=== PATIENT | male | born 1985 | race American Indian/Alaskan Native ===

== ENCOUNTER 2016-12-02 16:37 | Inpatient (IN) | payer OTHER ==
[2016-12-02] MEDS ORDERED: Sodium Chloride 0.9% 1,000 ML IV STA (16:51)
[2016-12-02] MEDS ORDERED: Albuterol 0.083% Inhal Sol (2.5 mg/3 mL) UD IH STA (16:51)
[2016-12-02 16:54] VITALS: BMI 40.4
--- NOTE | 2016-12-02 17:28 | ED PDOC ---
Arrival/HPI - General Chief Complaint: Flu-like Symptoms Time Seen by Provider: 12/02/16 16:44 Historian: Patient - History of Present Illness Narrative History of Present Illness (Text): 12/02/16 17:24 31-year-old male presents today with a three-day history of cough and a one day history of headache fever and feeling dizzy. Patient complaining of productive cough x 3 days. pt with hx of asthma. c/o wheezing and cough. pt states today he developed fever and headache. took nyquil without improvement. pt with sick contacts at home. denies chest pain or shortness of breath. pt c/o sore throat and nasal congestion. pt describes the headache as throbbing around the whole head. denies blurred vision. Pt states today he started to feel dizzy when he stands up. pt states he did get his flu shot this year. no other complaints. Past Medical History - Provider Review Nursing Documentation Reviewed: Yes - Travel History Have you recently traveled outside [place] w/in the past 3 mons?: No - Infectious Disease Hx of Infectious Diseases: None - Cardiac Hx Cardiac Disorders: No - Pulmonary Hx Respiratory Disorders: Yes Hx Asthma: Yes - Neurological Hx Neurological Disorder: No - HEENT Hx HEENT Disorder: No - Renal Hx Renal Disorder: No - Endocrine/Metabolic Hx Endocrine Disorders: No - Hematological/Oncological Hx Blood Disorders: No - Integumentary Hx Dermatological Disorder: No - Musculoskeletal/Rheumatological Hx Musculoskeletal Disorders: No - Gastrointestinal Hx Gastrointestinal Disorders: No - Genitourinary/Gynecological Hx Genitourinary Disorders: No - Psychiatric Hx Psychophysiologic Disorder: No Hx Substance Use: No - Anesthesia Hx Anesthesia: No Hx Anesthesia Reactions: No Hx Malignant Hyperthermia: No Family/Social History - Physician Review Nursing Documentation Reviewed: Yes Family/Social History: Unknown Family HX Smoking Status: Light Smoker < 10 Cigarettes Daily Hx Alcohol Use: Yes Frequency of alcohol use: Socially Hx Substance Use: No Allergies/Home Meds Allergies/Adverse Reactions: Allergies shellfish derived Allergy (Verified 12/02/16 16:44) ANAPHYLAXIS Home Medications: Home Meds Medication Instructions Recorded Confirmed No Known Home Med 12/02/16 12/02/16 Review of Systems - Review of Systems Constitutional: Fatigue, Fevers ENT: Sore Throat, Sinus Congestion Respiratory: Cough, Wheezing. absent: SOB Cardiovascular: absent: Chest Pain Gastrointestinal: absent: Abdominal Pain, Nausea, Vomiting Genitourinary Male: absent: Dysuria, Frequency Musculoskeletal: absent: Back Pain, Neck Pain Skin: absent: Rash, Pruritis Neurological: Headache, Dizziness Psychiatric: absent: Anxiety, Depression Physical Exam Vital Signs Reviewed: Yes Vital Signs Temp Pulse Resp BP Pulse Ox 12/02/16 18:40 99.1 F 113 H 18 138/78 95 12/02/16 17:08 100.8 F H 12/02/16 16:44 100.8 F H 97 H 18 134/84 95 Temperature: Febrile Blood Pressure: Normal Pulse: Tachycardic Respiratory Rate: Normal Appearance: Positive for: Well-Appearing, Non-Toxic, Comfortable Pain Distress: None Mental Status: Positive for: Alert and Oriented X 3 - Systems Exam Head: Present: Atraumatic Conjunctiva: Present: Normal Ears: Present: Normal, NORMAL TM Mouth: Present: Moist Mucous Membranes Pharnyx: Present: Normal. No: ERYTHEMA, EXUDATE, TONSILS ENLARGED, Peritonsilar Swelling, Uvular Deviation, Muffled/Hoarse Voice, Strider Nose (External): Present: Atraumatic Nose (Internal): Present: Normal Inspection Neck: Present: Normal Range of Motion, Trachea Midline. No: Lymphadenopathy Respiratory/Chest: Present: Good Air Exchange, Wheezes, Decreased Breath Sounds , Rhonchi. No: Clear to Auscultation, Respiratory Distress, Accessory Muscle Use, Tachypneic, Tender to Palpation Cardiovascular: Present: Regular Rate and Rhythm, Normal S1, S2. No: Murmurs Abdomen: Present: Normal Bowel Sounds. No: Tenderness, Distention, Peritoneal Signs, Rebound, Guarding Back: Present: Normal Inspection Neurological: Present: GCS=15, Speech Normal Skin: Present: Warm, Dry, Normal Color. No: Rashes Psychiatric: Present: Alert, Oriented x 3 Medical Decision Making ED Course and Treatment: 12/02/16 17:35 Patient is nontoxic well-appearing in no distress. low grade fever. hypoxia, diffuse wheezing, rhonchi tylenol and motrin given po NS iv bolus given rapid flu negative rapid strep: negative cxr; + rll infiltrate cbc; wbc:16.2 blood cultures pending Zithromax and rocephin iv heart rate improving; still occasionally hypoxic with slight wheezing despite nebulizers. tachycardia most likely due to fever and albuterol treatments. pt reassessment; feeling a little better, still c/o dizziness and cough. case discussed with dr. heller; will admit to med surg for pneumonia, with hx of asthma and smoking, with wheezing and hypoxia. pt seen and evaluated by dr. chandra. IMPRESSION; pneumonia admit to med/surg - Lab Interpretations Lab Results: 12/02/16 18:35 12/02/16 18:35 Lab Results 12/02/16 18:35: WBC 16.2 H, RBC 5.19, Hgb 14.6, Hct 42.4, MCV 81.7, MCH 28.1, MCHC 34.4, RDW 12.9, Plt Count 190, MPV 9.9, Gran % 79.8 H, Lymph % (Auto) 9.3 L , [place] % (Auto) 10.6 H, Eos % (Auto) 0.1 L, Baso % (Auto) 0.2, Gran # 12.91 H, Lymph # 1.5, [place] # 1.7 H, Eos # 0.0, Baso # 0.03, Sodium 135, Potassium 3.8, Chloride 102, Carbon Dioxide 22, Anion Gap 15, BUN 14, Creatinine 1.1, Est GFR ( Amer) > 60, Est GFR (Non-Af Amer) > 60, Random Glucose 122 H, Calcium 8.7, Total Bilirubin 0.8, AST 38, ALT 45, Alkaline Phosphatase 46, Total Protein 7.7, Albumin 4.1, Globulin 3.6, Albumin/Globulin Ratio 1.1 12/02/16 17:15: Influenza Typ A,B (EIA) Negative for flu a/b, Grp A Beta Strep Ag Negative - RAD Interpretation Radiology Orders: 12/02/16 16:52 CHEST TWO VIEWS (PA/LAT) [RAD] Stat - Medication Orders Current Medication Orders: Azithromycin (Zithromax 500mg In Ns) 250 mls @ 167 mls/hr IVPB STAT STA PRN Reason: Protocol Stop: 12/02/16 21:33 Discontinued Medications Acetaminophen (Tylenol 325mg Tab) 975 mg PO STAT STA Stop: 12/02/16 16:53 Last Admin: 12/02/16 17:08 Dose: 975 MG MAR Pain/Vitals Document 12/02/16 17:08 SE (Rec: 12/02/16 17:08 SE [id number]) Pain Reassessment Is This A Pain ReAssessment? No Sleep Is patient sleeping during reassessment? No Presence of Pain Presence of Pain No Vitals Temperature (97.6 F-99.6 F) 100.8 F Temperature Source Oral Albuterol Sulfate (Albuterol 0.083% Inhal [place] (2.5 Mg/3 Ml) Ud) 2.5 mg IH STAT STA Stop: 12/02/16 16:52 Last Admin: 12/02/16 17:05 Dose: 2.5 MG Albuterol/Ipratropium (Duoneb 3 Mg/0.5 Mg (3 Ml) Ud) 3 ml IH STAT STA Stop: 12/02/16 18:46 Last Admin: 12/02/16 18:54 Dose: 3 ML Albuterol/Ipratropium (Duoneb 3 Mg/0.5 Mg (3 Ml) Ud) 3 ml IH STAT STA Stop: 12/02/16 18:47 Last Admin: 12/02/16 18:54 Dose: 3 ML Sodium Chloride (Sodium Chloride 0.9%) 1,000 mls @ 999 mls/hr IV .Q1H1M STA Stop: 12/02/16 17:51 Last Admin: 12/02/16 17:05 Dose: 999 MLS/HR eMAR Start Stop Document 12/02/16 17:05 SE (Rec: 12/02/16 17:05 [id number]) Intravenous Solution Start Date 12/02/16 Start Time 17:05 Ceftriaxone Sodium (Rocephin 1 Gram Ivpb) 100 mls @ 200 mls/hr IVPB STAT STA PRN Reason: Protocol Stop: 12/02/16 20:33 Last Admin: 12/02/16 20:38 Dose: 200 MLS/HR eMAR Start Stop Document 12/02/16 20:38 SE (Rec: 12/02/16 20:38 [id number] Intravenous Solution Start Date 12/02/16 Start Time 20:38 Ibuprofen (Motrin Tab) 600 mg PO STAT STA Stop: 12/02/16 16:53 Last Admin: 12/02/16 17:08 Dose: 600 MG MAR Pain/Vitals Document 12/02/16 17:08 SE (Rec: 12/02/16 17:08 SE [id number]) Pain Reassessment Is This A Pain ReAssessment? No Sleep Is patient sleeping during reassessment? No Presence of Pain Presence of Pain Yes Vitals Temperature (97.6 F-99.6 F) 100.8 F Temperature Source Oral Disposition/Present on Arrival - Present on Arrival Any Indicators Present on Arrival: No History of DVT/PE: No History of Uncontrolled Diabetes: No Urinary Catheter: No History of Decub. Ulcer: No History Surgical Site Infection Following: None - Disposition Have Diagnosis and Disposition been Completed?: Yes Diagnosis: Pneumonia, Hypoxia, Fever, Leukocytosis Disposition: HOSPITALIZED Disposition Time: 21:00 Patient Plan: Admission Patient Problems: Current Active Problems Problem Status Diagnosed Pneumonia Acute Condition: FAIR
[2016-12-02] MEDS ORDERED: Albuterol-Ipratrop 3 mg / 0.5 (3 ml) UD IH STA ×2 (18:45→18:46)
[2016-12-02 18:46] LABS: ADD MANUAL DIFF? NO
[2016-12-02 18:49] LABS: BASO # 0.03 K/mm3 (0.0-2.0); BASO % 0.2 % (0.0-3.0); EOS % 0.1 % (1.5-5.0); GRAN # 12.91 (1.4-6.5); GRAN % 79.8 % (50.0-68.0); HEMATOCRIT 42.4 % (42.0-52.0); LYMPH # 1.5 (1.2-3.4); LYMPH % 9.3 % (22.0-35.0); MEAN CELL VOLUME 81.7 fL (80.0-105.0); MEAN CORPUSCULAR HEMOGLOBIN 28.1 pg (25.0-35.0); MEAN CORPUSCULAR HGB CONC 34.4 g/dl (31.0-37.0); MEAN PLATELET VOLUME 9.9 fl (7.0-11.0); MONO # 1.7 (0.1-0.6); MONO % 10.6 % (1.0-6.0); PLATELET COUNT 190 10^3/uL (120.0-450.0); RED CELL DISTRIBUTION WIDTH 12.9 % (11.5-14.5); WHITE BLOOD COUNT 16.2 10^3/ul (4.5-11.0)
[2016-12-02 19:04] LABS: ALB/GLOB RATIO 1.1 (1.1-1.8); ALKALINE PHOSPHATASE 46 U/L (38-133); ALT/SGPT 45 U/L (7-56); AST/SGOT 38 U/L (15-59); BILIRUBIN,TOTAL 0.8 mg/dL (0.2-1.3); BLOOD UREA NITROGEN 14 mg/dL (7-21); CALCIUM 8.7 mg/dL (8.4-10.5); CARBON DIOXIDE 22 mmol/L (21-33); CHLORIDE 102 mmol/L (98-107); GFR AFRICAN-AMERICAN > 60; GLUCOSE,RANDOM 122 mg/dL (70-110); POTASSIUM 3.8 mmol/L (3.6-5.0); SODIUM 135 mmol/L (132-148); TOTAL PROTEIN 7.7 g/dL (5.8-8.3)
[2016-12-02] MEDS ORDERED: cefTRIAXone 1 gm 100 ML IVPB STA (20:04)
[2016-12-02] MEDS ORDERED: Azithromycin 500MG/NS 250ml 250 ML IVPB STA (20:04)
[2016-12-02] MEDS ORDERED: Albuterol-Ipratrop 3 mg / 0.5 (3 ml) UD IH PRN (21:55)
--- NOTE | 2016-12-02 22:24 | HP ---
HISTORY OF PRESENT ILLNESS: The patient is a 31-year-old who has been feeling sick for the last 2 da ys, complaining of cough, congestion, wheezing, runny stuffy nose, headache, dizziness. He stated hi s other family members are sick also. Denies current complaint of feeling dizzy and lightheaded. De nies any hemoptysis, no hematemesis. Does feel nauseous. PAST MEDICAL HISTORY: Significant for asthma. ALLERGIES: HE IS ALLERGIC TO SHELLFISH DERIVATIVE. MEDICATIONS AT HOME: He uses an inhaler as needed. REVIEW OF SYSTEMS: Significant for cough, congestion, headache, dizziness. PHYSICAL EXAMINATION: GENERAL: He is awake and alert and communicative. VITAL SIGNS: He has temperature of 100.8, pulse 97, respirations 18, blood pressure 134/84, pulse ox 95% on 2 liters nasal cannula. HEART: S1, S2 audible. Tachycardic. ABDOMEN: Soft, nontender, no rebound, no guarding. NEUROLOGIC: He is awake and alert, communicative. LABORATORY EXAMINATION: WBC 16.2, hemoglobin 14.6, hematocrit 42.4, platelets 190. Chemistry: [place] um 135, potassium 3.8, chloride 102, CO2 of 22, BUN 14, creatinine 1.1, blood sugar 122. LFTs are wi thin normal limits. Influenza and strep test are negative. Blood culture, urine cultures are pendin g. X-ray chest shows right lower lobe pneumonia. ASSESSMENT: 1. Community-acquired pneumonia. 2. Asthmatic bronchitis. 3. Bronchospasm. 4. Hypoxia. 5. Leukocytosis. PLAN: The patient's blood culture, urine cultures are sent. He is empirically started on Zithromax and Rocephin. We will continue nebulizer treatment, small dose of steroid, analgesic as needed. Out of bed to chair. ID consult with Dr. Sharma has been requested. Nuvia Barriga MD cc: [phone] TT: 12/02/2016 22:24:11 sn
[2016-12-03] MEDS: MethylPREDNISolone 40 mg Vial IV SCH ×3 (00:35→21:19)
[2016-12-03] MEDS: Albuterol-Ipratrop 3 mg / 0.5 (3 ml) UD IH SCH ×4 (01:45→20:02)
[2016-12-03] MEDS: Pantoprazole 40 mg EC Tab PO SCH (08:07)
--- NOTE | 2016-12-03 08:26 | RAD ---
HISTORY: cough/fever COMPARISON: No prior. TECHNIQUE: Chest PA and lateral FINDINGS: LUNGS: Right middle lobe infiltrate. Possible pneumonia. PLEURA: No significant pleural effusion identified. No pneumothorax apparent. CARDIOVASCULAR: Normal. OSSEOUS STRUCTURES: No significant abnormalities. VISUALIZED UPPER ABDOMEN: Normal. OTHER FINDINGS: None. IMPRESSION: Right middle lobe infiltrate.
[2016-12-03] MEDS: Azithromycin 500MG/NS 250ml 250 ML IVPB SCH (10:07)
[2016-12-03] MEDS: cefTRIAXone 1 gm 100 ML IVPB SCH (11:02)
--- NOTE | 2016-12-03 13:00 | PN ---
DATE: 12/03/2016 The patient is a 31-year-old, seen and examined, sitting in chair, eating comfortably. No headache, no dizziness. PHYSICAL EXAMINATION: VITAL SIGNS: He is afebrile, pulse 74, respirations 20, blood pressure 123/65. LUNGS: Bilateral soft crackle, moreso on the right lower lung. HEART: S1, S2 audible. ABDOMEN: Soft, obese, nontender, no rebound, no guarding. NEUROLOGIC: He is awake and alert, communicative, ambulatory. His influenza test and strep test is negative. ASSESSMENT: 1. Community-acquired pneumonia. 2. Asthmatic bronchitis. 3. Leukocytosis. 4. Hypoxia. PLAN: We will continue patient on current antibiotic. Follow up his CBC and CMP in a.m. Encourage ambulation. If he remains stable, discharge plan soon. Nuvia Barriga MD cc: [phone] TT: 12/03/2016 12:59:56 Confirmation # [id number] Dictation # [id number]
--- NOTE | 2016-12-03 22:36 | CP.PCM.CON ---
History of Present Illness - History of Present Illness History of Present Illness: 31 year old male with PMH of morbid obesity with BMI 40, asthma, active smoking came in to the ED complaining of malaise, cough and fever for about 3 days associated with some dizziness. He also had non-specific headache. He states that he was exposed to sick family members the past week. He started having sore throat and nasal congestion about 4-5 days ago but did not recover and continued to worsen. He denies chest pain, no nausea or vomiting, no abdominal pain, no dysuria, no hematuria, no diarrhea. In the ED, CXR showed right middle lobe infiltrate and Infectious Diseases consult is requested to further evaluate and manage. Review of Systems - Review of Systems All systems: reviewed and no additional remarkable complaints except (as per HPI ) Past Patient History - Infectious Disease Hx of Infectious Diseases: None - Past Social History Smoking Status: Light Smoker < 10 Cigarettes Daily - CARDIAC Hx Cardiac Disorders: No - PULMONARY Hx Respiratory Disorders: Yes Hx Asthma: Yes - NEUROLOGICAL Hx Neurological Disorder: No - HEENT Hx HEENT Problems: No - RENAL Hx Chronic Kidney Disease: No - ENDOCRINE/METABOLIC Hx Endocrine Disorders: No - HEMATOLOGICAL/ONCOLOGICAL Hx Blood Disorders: No - INTEGUMENTARY Hx Dermatological Problems: No - MUSCULOSKELETAL/RHEUMATOLOGICAL Hx Musculoskeletal Disorders: No - GASTROINTESTINAL Hx Gastrointestinal Disorders: No - GENITOURINARY/GYNECOLOGICAL Hx Genitourinary Disorders: No - PSYCHIATRIC Hx Psychophysiologic Disorder: No Hx Substance Use: No - SURGICAL HISTORY Hx Surgeries: No - ANESTHESIA Hx Anesthesia: No Hx Anesthesia Reactions: No Hx Malignant Hyperthermia: No Meds Allergies/Adverse Reactions: Allergies Allergy/AdvReac Type Severity Reaction Status Date / Time shellfish derived Allergy ANAPHYLAXIS Verified 12/02/16 16:44 - Medications Medications: Current Medications Acetaminophen (Tylenol 325mg Tab) 650 mg PO Q6H PRN PRN Reason: Fever >100.4 F Albuterol/Ipratropium (Duoneb 3 Mg/0.5 Mg (3 Ml) Ud) 3 ml IH Q2H PRN PRN Reason: Shortness of Breath Last Admin: 12/03/16 00:24 Dose: 3 ml Albuterol/Ipratropium (Duoneb 3 Mg/0.5 Mg (3 Ml) Ud) 3 ml IH [id number] Last Admin: 12/03/16 01:45 Dose: Not Given Azithromycin (Zithromax 500mg In Ns) 250 mls @ 167 mls/hr IVPB DAILY [facility] PRN Reason: Protocol Ceftriaxone Sodium (Rocephin 1 Gram Ivpb) 100 mls @ 100 mls/hr IVPB DAILY [facility] PRN Reason: Protocol Methylprednisolone (Solu-Medrol) 40 mg IV Q12 [facility] Last Admin: 12/03/16 00:35 Dose: 40 mg Pantoprazole Sodium (Protonix Ec Tab) 40 mg PO ACB [facility] Physical Exam - Constitutional Appears: Non-toxic, No Acute Distress - Head Exam Head Exam: NORMAL INSPECTION - ENT Exam ENT Exam: Mucous Membranes Moist - Neck Exam Neck exam: Negative for: Meningismus - Respiratory Exam Respiratory Exam: Decreased Breath Sounds, Rales (scattered) - Cardiovascular Exam Cardiovascular Exam: +S1, +S2 - GI/Abdominal Exam GI & Abdominal Exam: Soft. absent: Tenderness Results - Vital Signs Recent Vital Signs: Last Vital Signs Temp 97.9 F 12/02/16 23:48 Pulse 87 12/03/16 00:25 Resp 18 12/02/16 23:48 BP 147/82 12/03/16 01:12 Pulse Ox 100 12/02/16 21:45 - Labs Result Diagrams: 12/02/16 18:35 12/02/16 18:35 Assessment & Plan - Assessment and Plan (Free Text) Plan: Assessment Sepsis secondary to right middle lobe community-acquired pneumonia morbid obesity with BMI 40 asthma active smoking Plan Started patient on Rocephin and Zithromax pending blood and sputum cx; follow up PCT Will monitor clinical response
[2016-12-04] MEDS: Albuterol-Ipratrop 3 mg / 0.5 (3 ml) UD IH SCH ×3 (01:52→13:12)
[2016-12-04 08:06] LABS: ADD MANUAL DIFF? NO
[2016-12-04 08:09] LABS: BASO # 0.02 K/mm3 (0.0-2.0); BASO % 0.1 % (0.0-3.0); GRAN # 17.72 (1.4-6.5); GRAN % 85.4 % (50.0-68.0); HEMATOCRIT 37.2 % (42.0-52.0); LYMPH # 1.6 (1.2-3.4); LYMPH % 7.7 % (22.0-35.0); MEAN CELL VOLUME 80.3 fL (80.0-105.0); MEAN CORPUSCULAR HEMOGLOBIN 27.6 pg (25.0-35.0); MEAN CORPUSCULAR HGB CONC 34.4 g/dl (31.0-37.0); MEAN PLATELET VOLUME 10.4 fl (7.0-11.0); MONO # 1.4 (0.1-0.6); MONO % 6.8 % (1.0-6.0); PLATELET COUNT 252 10^3/uL (120.0-450.0); RED CELL DISTRIBUTION WIDTH 12.9 % (11.5-14.5); WHITE BLOOD COUNT 20.8 10^3/ul (4.5-11.0)
[2016-12-04 08:25] LABS: ALB/GLOB RATIO 1.1 (1.1-1.8); ALKALINE PHOSPHATASE 58 U/L (38-133); ALT/SGPT 38 U/L (7-56); AST/SGOT 25 U/L (15-59); BILIRUBIN,TOTAL 0.4 mg/dL (0.2-1.3); BLOOD UREA NITROGEN 14 mg/dL (7-21); CALCIUM 9.1 mg/dL (8.4-10.5); CARBON DIOXIDE 24 mmol/L (21-33); CHLORIDE 103 mmol/L (95-110); GFR AFRICAN-AMERICAN > 60; GLUCOSE,RANDOM 163 mg/dL (70-110); POTASSIUM 4.4 mmol/L (3.6-5.0); SODIUM 140 mmol/L (132-148); TOTAL PROTEIN 7.2 g/dL (5.8-8.3)
[2016-12-04 08:50] VITALS: BP 109/40; PULSE 52; RESP 16; TEMP 97.9; O2SAT 100
[2016-12-04] MEDS: cefTRIAXone 1 gm 100 ML IVPB SCH (09:52)
[2016-12-04] MEDS: MethylPREDNISolone 40 mg Vial IV SCH (09:52)
[2016-12-04] MEDS: Pantoprazole 40 mg EC Tab PO SCH (09:53)
[2016-12-04] MEDS: Azithromycin 500MG/NS 250ml 250 ML IVPB SCH (10:54)
[2016-12-04] MEDS ORDERED: Pneumococcal 23-Valent Vaccine IM ONE (14:29)
--- NOTE | 2016-12-04 19:11 | DS ---
The patient is a 31-year-old black male seen and examined, doing well. He was admitted with high-gra de fever, cough, congestion, dizziness going on for 2 weeks. He was found to have right lower lobe p neumonia. States he is doing well, eating and tolerating. PHYSICAL EXAMINATION: VITAL SIGNS: He is afebrile, pulse 72, respirations 20, blood pressure 122/78. LUNGS: Bilateral fair airflow. Few soft crackles at the right lung base. HEART: S1, S2 audible. ABDOMEN: Soft, nontender, no rebound, no guarding. NEUROLOGIC: The patient is awake and alert, communicative. LABORATORY EXAM: WBC is 20.8, hemoglobin 12.8, hematocrit 37.2, platelets 252. Chemistry: Sodium 1 40, potassium 4.4, chloride 103, CO2 of 24, BUN 14, creatinine 0.9, blood sugar of 163, procalcitonin 2.59. Influenza is negative. Legionella is negative. Blood culture and urine culture are negative . ASSESSMENT AND PLAN: 1. Community-acquired pneumonia. 2. History of asthma. 3. Hypotension. 4. Morbid obesity. 5. Active smoking. PLAN: The patient's blood culture and urine cultures are negative. He is clinically stable. He is not feeling dizziness or headache, so he will be discharged home on Zithromax and Ceftin. He is give n ProAir 2 puffs q.i.d. and promethazine DM 1 teaspoon q. 6. The patient is advised to follow up in office in a week and followup the patient as outpatient. Nuvia Barriga MD cc: [phone] TT: 12/04/2016 19:10:43 mt
--- NOTE | 2016-12-04 21:20 | CP.PCM.PN ---
Subjective - Date & Time of Evaluation Date of Evaluation: 12/04/16 Time of Evaluation: 12:00 - Subjective Subjective: Comfortable in bed, not in distress, afebrile, still with cough but improving. Objective - Vital Signs/Intake and Output Vital Signs (last 24 hours): Temp Pulse Resp BP Pulse Ox 97.9 F 52 L 16 109/40 L 100 12/04/16 08:00 12/04/16 08:00 12/04/16 08:00 12/04/16 08:00 12/04/16 08:00 Intake and Output: 12/04/16 12/05/16 18:59 06:59 Intake Total 1080 Balance 1080 - Labs Labs: 12/04/16 07:36 12/04/16 07:36 - Constitutional Appears: Non-toxic, No Acute Distress - Head Exam Head Exam: NORMAL INSPECTION - ENT Exam ENT Exam: Mucous Membranes Moist - Neck Exam Neck Exam: absent: Lymphadenopathy, Meningismus - Respiratory Exam Respiratory Exam: Decreased Breath Sounds - Cardiovascular Exam Cardiovascular Exam: +S1, +S2 - GI/Abdominal Exam GI & Abdominal Exam: Soft. absent: Tenderness Assessment and Plan - Assessment and Plan (Free Text) Plan: Assessment Sepsis secondary to right middle lobe community-acquired pneumonia, clinically improving morbid obesity with BMI 40 asthma active smoking Plan continue Rocephin and Zithromax; blood cx are negative; PCT is elevated at 2.59 ; when ready for discharge, the patient can be switched to PO antibiotics to complete a 5-7 day course
== END 2016-12-04 17:34 | disposition home or self-care (01) | DRG 194 ==
LOC: ED 16:37 → ERH 21:09 → 5RSO 23:38
PROVIDERS: ADMIT Internal Medicine; ATTEND Internal Medicine
PROC: 3E0234Z Introduction of Serum, Toxoid and Vaccine into Muscle, Percutaneous Approach (ICD-10-PCS; principal; 2016-12-04)
DX: J18.9 Pneumonia, unspecified organism (principal); Z68.41 Body mass index [BMI] 40.0-44.9, adult; I95.9 Hypotension, unspecified; J45.909 Unspecified asthma, uncomplicated; E66.01 Morbid (severe) obesity due to excess calories; F17.200 Nicotine dependence, unspecified, uncomplicated; R09.02 Hypoxemia; Z23 Encounter for immunization

== ENCOUNTER 2017-02-24 01:52 | Inpatient (IN) | payer OTHER ==
[2017-02-24 02:26] VITALS: BMI 39.0
[2017-02-24] MEDS ORDERED: Morphine 2 mg/ml ISec IVP STA (03:00)
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
[2017-02-24] MEDS ORDERED: Propofol 10 mg/ml Inj (20 ML) IVP ONE (05:51)
[2017-02-24] MEDS: Sodium Chloride 0.9% 1,000 ML IV SCH ×2 (06:04→16:31)
[2017-02-24 08:39] LABS: HEMOGLOBIN 13.7 gm/dL (14.0-18.0); MEAN CELL VOLUME 83.7 fL (80.0-105.0); MEAN CORPUSCULAR HEMOGLOBIN 28.2 pg (25.0-35.0); MEAN CORPUSCULAR HGB CONC 33.7 g/dl (31.0-37.0); RBC 4.86 10^6/uL (3.5-6.1); RED CELL DISTRIBUTION WIDTH 13.5 % (11.5-14.5); WHITE BLOOD COUNT 12.2 10^3/ul (4.5-11.0)
[2017-02-24 08:51] LABS: INR 0.99 (0.93-1.08); PARTIAL THROMBOPLASTIN TIME 23.7 Seconds (23.7-30.8); PROTHROMBIN TIME 10.7 Seconds (9.9-11.8)
[2017-02-24 08:53] LABS: ALB/GLOB RATIO 1.4 (1.1-1.8); ALBUMIN 3.9 g/dL (3.0-4.8); ALT/SGPT 55 U/L (7-56); AST/SGOT 42 U/L (15-59); BLOOD UREA NITROGEN 14 mg/dL (7-21); CALCIUM 8.6 mg/dL (8.4-10.5); GFR AFRICAN-AMERICAN > 60; GFR NON-AFRICAN AMERICAN > 60
--- NOTE | 2017-02-24 09:46 | RAD ---
PROCEDURE: Right Ankle Radiographs. HISTORY: ankle injury, dislocated, fracture COMPARISON: None FINDINGS: BONES: Comminuted fracture of the distal shaft of the right fibula with anterior displacement of the distal aspect of the proximal fracture fragment with respect to the distal fibular fragment. . There is anterior dislocation of the distal right tibia with respect to the talus. Surrounding soft tissue swelling. JOINTS: As above SOFT TISSUES: As above OTHER FINDINGS: None. Comminuted fracture of the distal shaft right fibula with anterior displacement of the distal aspect of the proximal fragment with respect to the distal fibular fragment. There is anterior dislocation of the right tibia with respect to the talus. Surrounding soft tissue swelling IMPRESSION:
--- NOTE | 2017-02-24 10:19 | CARD ---
APPROVED REPORT EKG Measurement Heart [id number] <Conclusion> Sinus rhythm with marked sinus arrhythmia Otherwise normal ECG
[2017-02-24] MEDS ORDERED: HYDROmorphone 0.5 mg/0.5 ml ISec IVP PRN (11:43)
[2017-02-24] MEDS ORDERED: HYDROmorphone 0.5 mg/0.5 ml ISec ONE ×2 (11:57→12:17)
[2017-02-24] MEDS: HYDROmorphone 0.5 mg/0.5 ml ISec IVP PRN ×2 (12:25→16:30)
--- NOTE | 2017-02-24 13:29 | RAD ---
PROCEDURE: Intraoperative Fluoroscopy. HISTORY: ORIF RT ANKLE FINDINGS: Fluoroscopic assistance was provided.
[2017-02-24 14:14] LABS: BASO # 0.03 K/mm3 (0.0-2.0); BASO % 0.2 % (0.0-3.0); EOS # 0.1 (0.0-0.7); EOS % 0.5 % (1.5-5.0); GRAN # 8.89 (1.4-6.5); GRAN % 72.8 % (50.0-68.0); HEMOGLOBIN 13.3 gm/dL (14.0-18.0); LYMPH % 16.1 % (22.0-35.0); MEAN CELL VOLUME 84.2 fL (80.0-105.0); MEAN CORPUSCULAR HEMOGLOBIN 27.7 pg (25.0-35.0); MEAN CORPUSCULAR HGB CONC 32.8 g/dl (31.0-37.0); MEAN PLATELET VOLUME 10.2 fl (7.0-11.0); MONO # 1.3 (0.1-0.6); MONO % 10.4 % (1.0-6.0); PLATELET COUNT 250 10^3/uL (120.0-450.0); RBC 4.81 10^6/uL (3.5-6.1); RED CELL DISTRIBUTION WIDTH 13.3 % (11.5-14.5); WHITE BLOOD COUNT 12.2 10^3/ul (4.5-11.0)
[2017-02-24] MEDS: ceFAZolin 1 gm in NS 1 GM/100 ML BAG IVPB SCH ×2 (14:37→21:13)
[2017-02-24] MEDS ORDERED: Albuterol-Ipratrop 3 mg / 0.5 (3 ml) UD IH PRN (17:59)
[2017-02-24] MEDS: HYDROmorphone 2 mg/ml ISec IVP PRN (21:13)
[2017-02-25] MEDS: HYDROmorphone 2 mg/ml ISec IVP PRN ×7 (01:00→23:42)
--- NOTE | 2017-02-25 01:17 | ED ---
A 31-year-old male came into the emergency room at 2 a.m. I got call to see him at 5 a.m. for fracture and dislocation of his right ankle *------* closed injury, callus is purely posteriorly, difficult to reduce. On the AP, it was purely posterior. Neurovascular status, beginning of some numbness of his right foot, so we did a propofol injection to relax him. We got a closed reduction done by putting *------* using tremendous force to bring that callus anteriorly, felt like it was in, so put him in a posterior splint. He is being ready for surgery, that is the only way to stabilize this unstable fracture to put a lateral fibular plate and syndesmotic screw and the surgery occurred approximately 2 hours. FINAL DIAGNOSIS: Fracture and dislocation of right ankle and he is going to go for surgery today for ORIF and the patient was told of the risks and benefits of everything. He is a smoker and he weighs about 280 pounds. Nacho Torre DO
[2017-02-25] MEDS: Sodium Chloride 0.9% 1,000 ML IV SCH ×2 (04:21→21:23)
[2017-02-25] MEDS: ceFAZolin 1 gm in NS 1 GM/100 ML BAG IVPB SCH ×3 (05:59→21:16)
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
[2017-02-25 07:18] LABS: ALB/GLOB RATIO 1.3 (1.1-1.8); ALBUMIN 3.7 g/dL (3.0-4.8); ALT/SGPT 43 U/L (7-56); AST/SGOT 28 U/L (15-59); BLOOD UREA NITROGEN 8 mg/dL (7-21); CALCIUM 8.4 mg/dL (8.4-10.5); GFR AFRICAN-AMERICAN > 60; GFR NON-AFRICAN AMERICAN > 60
[2017-02-25 07:31] VITALS: RESP 20
[2017-02-25 07:31] LABS: BASO # 0.02 K/mm3 (0.0-2.0); BASO % 0.2 % (0.0-3.0); EOS # 0.1 (0.0-0.7); EOS % 0.9 % (1.5-5.0); GRAN # 8.09 (1.4-6.5); HEMOGLOBIN 12.5 gm/dL (14.0-18.0); LYMPH # 1.5 (1.2-3.4); LYMPH % 13.7 % (22.0-35.0); MEAN CELL VOLUME 83.4 fL (80.0-105.0); MEAN CORPUSCULAR HEMOGLOBIN 27.7 pg (25.0-35.0); MEAN CORPUSCULAR HGB CONC 33.2 g/dl (31.0-37.0); MEAN PLATELET VOLUME 10.6 fl (7.0-11.0); MONO # 1.5 (0.1-0.6); MONO % 13.2 % (1.0-6.0); PLATELET COUNT 239 10^3/uL (120.0-450.0); RBC 4.52 10^6/uL (3.5-6.1); RED CELL DISTRIBUTION WIDTH 13.5 % (11.5-14.5); WHITE BLOOD COUNT 11.2 10^3/ul (4.5-11.0)
[2017-02-25] MEDS: Enoxaparin 40 mg Syringe SC SCH (10:29)
--- NOTE | 2017-02-25 18:52 | OP ---
PROCEDURE DATE: 02/24/2017 ORTHOPEDIC SURGICAL REPORT HISTORY OF PRESENT ILLNESS: This 31-year-old male came into the emergency room today, 02/24/2017 with a fracture dislocation of his right ankle with a comminuted distal fibular fracture 2 inches above the plafond and a talus that was 100% displaced on the lateral x-ray; purely posterior, intact medial malleolus. The wound was closed at beginning of paresthesia of his right leg. He had an urgent closed reduction done with sedation of propofol and that got like 50% reduction. We prepped him for OR as expediently as possible. Then we took him to the OR and did an x-ray, showing that it could not be reduced closed. PREOPERATIVE DIAGNOSIS: Irreducible fracture dislocation, right ankle. POSTOPERATIVE DIAGNOSIS: Irreducible fracture dislocation, right ankle with 100% displaced talus and/or comminuted lateral malleolus. PROCEDURE: Open reduction and internal fixation with general anesthesia endotracheal tube with lateral incision from the fibula proximally for 8 inches. SURGEON: Dr. Nacho Torre. TYPE OF ANESTHESIA: General anesthesia with endotracheal tube. DESCRIPTION OF PROCEDURE: Deep BioVIEW scope through the subcutaneous tissue after the patient prepped and draped and we put bolts on the right hip, but no tourniquet was used because of its massive size and we went posterior to the fibula from the tip proximally for about 8 inches. Deep BioVIEW scope through subcutaneous tissue, evacuated the hematoma once we identified the fracture, it was displaced and unstable with syndesmotic disruption also. So we cleaned everything up, got the exposure joint to see that there is no fragments in the joint. We held it and reduced the clamp and did the first screw, the lag screw from the anterior to posterior directing the scope distally, in the head proximally. So, once this held the fracture reduced, we were able to put a 10 hole recon plate because it is a large size, we needed a thicker plate better than the one third tubular plate. We put 4 screws distally, 4 screws proximally, 2 screws were left open and we contoured the plate and because of the unstable syndesmosis, we used 2 Biomet ZipTights to further secure a syndesmotic disruption. We held it and reduced the bone holding tenaculum and actually showed good reduction of the syndesmosis and stable without any ability to separate. Wound was irrigated with normal saline and closed in layers with #1 Vicryl and combination of #1 and 0 Vicryl for the fascia to cover the plate and 2-0 Vicryl subcutaneous tissue and skin with a combination of 2-0 nylon and stainless steel renae. We put in a coaptation splint to protect him because of its massive size and he has to cooperate to not put weight on his leg. He went to the recovery room in good condition. Nacho Torre DO
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
[2017-02-26] MEDS: HYDROmorphone 2 mg/ml ISec IVP PRN ×2 (04:38→09:00)
[2017-02-26] MEDS: ceFAZolin 1 gm in NS 1 GM/100 ML BAG IVPB SCH ×2 (06:30→13:53)
[2017-02-26 08:29] VITALS: BP 130/82; PULSE 91; O2SAT 97
[2017-02-26 11:00] VITALS: TEMP 98.8
[2017-02-26] MEDS: Enoxaparin 40 mg Syringe SC SCH (11:00)
[2017-02-26] MEDS: Sodium Chloride 0.9% 1,000 ML IV SCH (11:01)
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
== END 2017-02-26 15:26 | disposition home or self-care (01) | DRG 494 ==
LOC: ED 01:52 → ERH 06:32 → 5RNO 13:12
PROVIDERS: ADMIT Internal Medicine; ATTEND Internal Medicine
PROC: 0QC Lower Bones, Extirpation (ICD-10-PCS; 2017-02-24)
PROC: 0QSJ04Z Reposition Right Fibula with Internal Fixation Device, Open Approach (ICD-10-PCS; principal; 2017-02-24 08:00)
DX: S82.831A Other fracture of upper and lower end of right fibula, initial encounter for closed fracture (principal); E66.01 Morbid (severe) obesity due to excess calories; W19.XXXA Unspecified fall, initial encounter; F17.210 Nicotine dependence, cigarettes, uncomplicated; J45.909 Unspecified asthma, uncomplicated; S93.04XA Dislocation of right ankle joint, initial encounter; Y93.89 Activity, other specified; W50.0XXA Accidental hit or strike by another person, initial encounter; Z91.013 Allergy to seafood; S90.01XA Contusion of right ankle, initial encounter; Z68.39 Body mass index [BMI] 39.0-39.9, adult

== ENCOUNTER 2017-12-25 21:31 | Inpatient (IN) | payer OTHER ==
--- NOTE | 2017-12-25 21:42 | ED PDOC ---
Arrival/HPI <Juma Lawrence - Last Filed: 12/26/17 00:43> - General Historian: Patient - History of Present Illness Time/Duration: Other (see hpi) Quality: Aching Context: Home <Aubrey Medeiros - Last Filed: 12/27/17 12:36> - General Time Seen by Provider: 12/25/17 21:34 - History of Present Illness Narrative History of Present Illness (Text): 12/25/17 21:41 This 32 yo male who denies pmh, presents to this ED c/o esther-umbilical pain that radiates to his stomach x 2 days. Patient stated he has been having more frequent BM. Denies diarrhea. Patient noted hemoptysis one episode early today. Denies sob, cp, recent travel, sick contact, or urinary symptoms. Patient also noted right scrotum is swollen x 2 weeks. (Aubrey Medeiros) Past Medical History - Provider Review Nursing Documentation Reviewed: Yes - Infectious Disease Hx of Infectious Diseases: None - Cardiac Hx Cardiac Disorders: No - Pulmonary Hx Respiratory Disorders: Yes Hx Asthma: Yes - Neurological Hx Neurological Disorder: No - HEENT Hx HEENT Disorder: No - Renal Hx Renal Disorder: No - Endocrine/Metabolic Hx Endocrine Disorders: No - Hematological/Oncological Hx Blood Disorders: No - Integumentary Hx Dermatological Disorder: No - Musculoskeletal/Rheumatological Hx Musculoskeletal Disorders: No Hx Falls: No - Gastrointestinal Hx Gastrointestinal Disorders: No - Genitourinary/Gynecological Hx Genitourinary Disorders: No - Psychiatric Hx Psychophysiologic Disorder: No Hx Substance Use: No - Surgical History Other/Comment: Right Ankle ORIF - Anesthesia Hx Anesthesia Reactions: No Hx Malignant Hyperthermia: No <Aubrey Medeiros - Last Filed: 12/27/17 12:36> Family/Social History - Physician Review Nursing Documentation Reviewed: Yes Family/Social History: Other (noncontributory) Smoking Status: Light Smoker < 10 Cigarettes Daily Hx Alcohol Use: Yes Hx Substance Use: No <Aubrey Medeiros - Last Filed: 12/27/17 12:36> Allergies/Home Meds <Juma Lawrence - Last Filed: 12/26/17 00:43> <Aubrey Medeiros - Last Filed: 12/27/17 12:36> Allergies/Adverse Reactions: Allergies shellfish derived Allergy (Verified 12/25/17 21:43) ANAPHYLAXIS Home Medications: Home Meds Medication Instructions Recorded Confirmed No Known Home Med 12/25/17 12/25/17 Review of Systems - Review of Systems Constitutional: Normal. absent: Fatigue, Weight Change, Fevers Eyes: Normal ENT: Normal Respiratory: Cough. absent: SOB, Wheezing Cardiovascular: Normal. absent: Chest Pain, Palpitations Gastrointestinal: Abdominal Pain, Diarrhea. absent: Nausea, Vomiting Genitourinary Male: Normal. absent: Dysuria, Frequency, Hematuria Musculoskeletal: Normal. absent: Back Pain, Neck Pain Skin: Normal. absent: Rash Neurological: Normal. absent: Headache, Dizziness, Focal Weakness, Gait Changes , Facial Droop, Disequilibrium Endocrine: Normal Hemo/Lymphatic: Normal Psychiatric: Normal <Aubrey Medeiros P - Last Filed: 12/27/17 12:36> Physical Exam Temperature: Febrile Blood Pressure: Normal Pulse: Regular Respiratory Rate: Normal Appearance: Positive for: Well-Appearing, Non-Toxic, Comfortable Pain Distress: None Mental Status: Positive for: Alert and Oriented X 3 - Systems Exam Head: Present: Atraumatic, Normocephalic Pupils: Present: PERRL Extroacular Muscles: Present: EOMI Conjunctiva: Present: Normal Mouth: Present: Moist Mucous Membranes Pharnyx: Present: Normal. No: ERYTHEMA, EXUDATE, TONSILS ENLARGED Neck: Present: Normal Range of Motion Respiratory/Chest: Present: Clear to Auscultation, Good Air Exchange. No: Respiratory Distress, Accessory Muscle Use Cardiovascular: Present: Regular Rate and Rhythm, Normal S1, S2. No: Murmurs Abdomen: Present: Tenderness ((+) RLQ abd. tenderness), Rebound, Guarding. No: Distention, Peritoneal Signs, McBurney's Point Tender, Rovsing's Sign Present, Hernias, Feeding Tubes, Ostomy Tubes Genitourinary Male: Present: Circumcised Penis, Testicle Tenderness, Hernias ((+ ) right scrotum hernia palpated approx 6 cm, tender on palpation, unable to reduce it). No: Lesions, Penile Discharge, Penile Swelling, Erythema Back: Present: Normal Inspection. No: CVA Tenderness Upper Extremity: Present: Normal Inspection, Normal ROM. No: Cyanosis, Edema Lower Extremity: Present: Normal Inspection, Normal ROM. No: Edema Neurological: Present: GCS=15, CN II-XII Intact, Speech Normal Skin: Present: Warm, Dry, Normal Color. No: Rashes Psychiatric: Present: Alert, Oriented x 3, Normal Insight, Normal Concentration <Aubrey Medeiros - Last Filed: 12/27/17 12:36> Vital Signs Temp Pulse Resp BP Pulse Ox 12/26/17 02:37 98.9 F 80 24 119/74 98 12/25/17 21:43 101.4 F H 96 H 20 130/76 96 Medical Decision Making <Juma Lawrence - Last Filed: 12/26/17 00:43> Re-evaluation Time: 02:12 Reassessment Condition: Re-examined, Improving,but remains with symptoms - Lab Interpretations I have reviewed the lab results: Yes Interpretation: Abnormal lab values (pyuria) <Aubrey Medeiros - Last Filed: 12/27/17 12:36> ED Course and Treatment: 12/26/17 01:44 I spoke with Dustin, vice president quality assurance regarding CT finding, and patient c/o abdominal and right scrotum pain. He said he would come to see patient. 12/26/17 02:[address] Clarita Weathers , house physician regarding patient c/o abdominal pain , right scrotum pain, reviewed labs, and CT scan result. She is aware medical or surgical instrument maker will see patient soon. She agreed with plan for admission. (Aubrey Medeiros) - Lab Interpretations Microbiology Results: Microbiology Results 12/25/17 22:20 Blood Blood Culture - Preliminary NO GROWTH AFTER 24 HOURS 12/25/17 22:15 Blood Blood Culture - Preliminary NO GROWTH AFTER 24 HOURS Lab Results: 12/25/17 22:20 12/25/17 22:20 Lab Results 12/26/17 00:50: Urine Color Yellow, Urine Appearance Sl cloudy, Urine pH 6.0, Ur Specific [place] 1.020, Urine Protein Trace H, Urine Glucose (UA) Negative, Urine Ketones 15 H, Urine Blood Negative, Urine Nitrate Negative, Urine Bilirubin Negative, Urine Urobilinogen 1.0 H, Ur Leukocyte Esterase Small H, Urine RBC 0 - 2, Urine WBC 5 - 10, Ur Epithelial Cells 1 - 3, Urine Bacteria Few 12/25/17 22:20: Sodium 144, Chloride 107, Potassium 4.0, Carbon Dioxide 24, Anion Gap 17, BUN 11, Creatinine 0.9, Est GFR ( Amer) > 60, Est GFR (Non- Af Amer) > 60, Random Glucose 99, Calcium 9.0, Magnesium 1.8, Total Bilirubin 0.4, AST 27, ALT 34, Alkaline Phosphatase 69, Total Protein 7.4, Albumin 4.2, Globulin 3.2, Albumin/Globulin Ratio 1.3, Lipase 42 12/25/17 22:20: pO2 122 H, VBG pH 7.38, VBG pCO2 42.0, VBG HCO3 24.8, VBG Total CO2 26.1, VBG O2 Sat (Calc) 99.6 H, VBG Base Excess -0.4 L, VBG Potassium 3.9, Sodium 137.0, Chloride 105.0, Glucose 96, Lactate 1.2, FiO2 21.0, Venous Blood Potassium 3.9 12/25/17 22:20: PT 12.0, INR 1.05, APTT 29.5 12/25/17 22:20: WBC 9.0, RBC 5.38, Hgb 14.8, Hct 43.6, MCV 81.0, MCH 27.5, MCHC 33.9, RDW 13.2, Plt Count 283, MPV 9.9, Gran % 72.7 H, Lymph % (Auto) 15.1 L, [place] % (Auto) 9.9 H, Eos % (Auto) 2.0, Baso % (Auto) 0.3, Gran # 6.54 H, Lymph # (Auto) 1.4, [place] # (Auto) 0.9 H, Eos # (Auto) 0.2, Baso # (Auto) 0.03 - RAD Interpretation Narrative RAD Interpretations (Text): 12/26/17 02:13 FINDINGS: Lung bases: Unremarkable. No mass. No consolidation. ABDOMEN: Liver: Unremarkable. No mass. Gallbladder and bile ducts: Unremarkable. No calcified stones. No ductal dilation. Pancreas: Unremarkable. No mass. No ductal dilation. Spleen: Unremarkable. No splenomegaly. Adrenals: Unremarkable. No mass. Kidneys and ureters: The right kidney is normal. The left kidney is located in the lower abdomen. No solid mass. No hydronephrosis. Stomach and bowel: There is a right inguinal hernia containing distal small bowel. The small bowel extends to the scrotal sac with fluid in the right scrotum. Moderately thick walled distal small bowel in the pelvis with adjacent mesenteric fat stranding and fluid consistent with edema. Mild diffuse distention of the mid and distal small bowel with the transition point in the right inguinal hernia/scrotum. There are mildly distended fluid-filled loops of small bowel in the scrotum. The small bowel loops exiting the inguinal hernia decompressed. Findings could be secondary to an ileus or partial small bowel obstruction. PELVIS: Appendix: No findings to suggest acute appendicitis. Normal appendix. Bladder: Unremarkable. No mass. Reproductive: Unremarkable as visualized. ABDOMEN and PELVIS: Intraperitoneal space: The amount of free fluid in the abdomen surrounding the liver and spleen. The free fluid extensive paracolic gutters and pelvis. No free air. Bones/joints: No acute fracture. No dislocation. No Vasculature: Unremarkable. No abdominal aortic aneurysm. Lymph nodes: Unremarkable. No enlarged lymph nodes. IMPRESSION: Thick walled distal small bowel with adjacent mesenteric edema. Diagnostic considerations include infectious/inflammatory processes and bowel ischemia. Clinical correlation and followup recommended. Mild diffuse distention of the mid and distal small bowel with a transition point in the right inguinal hernia/scrotum. Possible small bowel ileus or partial distal small bowel obstruction. Mild ascites. 12/26/17 02:14 CXR: NAD (Aubrey Medeiros P) Radiology Orders: 12/25/17 21:51 CHEST PORTABLE [RAD] Stat 12/25/17 21:52 ABD & PELVIS IV CONTRAST ONLY [CT] Stat - Medication Orders Current Medication Orders: Albuterol/Ipratropium (Duoneb 3 Mg/0.5 Mg (3 Ml) Ud) 3 ml IH [id number] PRN PRN Reason: Wheezing Last Admin: 12/27/17 06:03 Dose: 3 ml Benzonatate (Tessalon Perles) 100 mg PO TID [facility] Last Admin: 12/27/17 09:44 Dose: 100 mg Sodium Chloride (Sodium Chloride 0.9%) 1,000 mls @ 120 mls/hr IV .Q8H20M [facility] Last Admin: 12/26/17 21:49 Dose: 120 mls/hr eMAR Start Stop Document 12/26/17 21:49 KTB (Rec: 12/26/17 21:49 KTB [id number]) Intravenous Solution Start Date 12/26/17 Start Time 21:49 Metronidazole (Flagyl) 500 mg in 100 mls @ 100 mls/hr IVPB Q8 JIE PRN Reason: Protocol Last Admin: 12/27/17 05:43 Dose: 100 mls/hr eMAR Start Stop Document 12/27/17 05:43 KTB (Rec: 12/27/17 05:46 KTB [id number]) Intravenous Solution Start Date 12/27/17 Start Time 05:46 End Date 12/27/17 End time 06:46 Total Infusion Time 60 Ceftriaxone Sodium (Rocephin 1 Gram Ivpb) 1 gm in 100 mls @ 100 mls/hr IVPB DAILY JIE PRN Reason: Protocol Last Admin: 12/27/17 09:45 Dose: 100 mls/hr eMAR Start Stop Document 12/27/17 09:45 MV (Rec: 12/27/17 09:45 MV [id number]) Intravenous Solution Start Date 12/27/17 Start Time 09:45 Ketorolac Tromethamine (Toradol) 30 mg IVP Q6H PRN PRN Reason: Pain, moderate (4-7) Morphine Sulfate (Morphine) 2 mg IVP Q4H PRN PRN Reason: Pain, severe (8-10) Last Admin: 12/27/17 09:45 Dose: 2 mg MAR Pain Assessment Document 12/27/17 09:45 MV (Rec: 12/27/17 09:45 [place] [facility] [id number] Pain Reassessment Is this a pain reassessment? No Location Pain Location Body Site Abdomen IVP Administration Document 12/27/17 09:45 MV (Rec: 12/27/17 09:45 MV [id number]) Charges for Administration # of IVP Administrations 1 Ondansetron HCl (Zofran Inj) 4 mg IVP Q4H PRN PRN Reason: Nausea/Vomiting Pantoprazole Sodium (Protonix Inj) 40 mg IVP DAILY [facility] Last Admin: 12/27/17 09:45 Dose: 40 mg IVP Administration Document 12/27/17 09:45 MV (Rec: 12/27/17 09:45 MV [id number]) Charges for Administration # of IVP Administrations 1 Discontinued Medications Acetaminophen (Tylenol 325mg Tab) 975 mg PO STAT STA Stop: 12/25/17 21:56 Last Admin: 12/25/17 22:24 Dose: 975 mg Famotidine (Pepcid) 20 mg IVP STAT STA Stop: 12/25/17 21:52 Last Admin: 12/25/17 22:24 Dose: 20 mg IVP Administration Document 12/25/17 22:24 CNR (Rec: 12/25/17 22:24 CNR [id number]) Charges for Administration # of IVP Administrations 1 Sodium Chloride (Sodium Chloride 0.9%) 1,000 mls @ 1,000 mls/hr IV .Q1H STA Stop: 12/25/17 22:50 Last Admin: 12/25/17 22:24 Dose: 1,000 mls/hr eMAR Start Stop Document 12/25/17 22:24 CNR (Rec: 12/25/17 22:24 CNR [id number]) Intravenous Solution Start Date 12/25/17 Start Time 22:24 Ciprofloxacin (Cipro 400mg/200ml Dsw) 400 mg in 200 mls @ 133.3 mls/hr IVPB STAT STA PRN Reason: Protocol Stop: 12/26/17 03:47 Last Admin: 12/26/17 03:45 Dose: 133.3 mls/hr eMAR Start Stop Document 12/26/17 03:45 CNR (Rec: 12/26/17 03:46 CNR [id number]) Intravenous Solution Start Date 12/26/17 Start Time 03:46 Metronidazole (Flagyl) 500 mg in 100 mls @ 100 mls/hr IVPB STAT STA PRN Reason: Protocol Stop: 12/26/17 03:18 Last Admin: 12/26/17 02:33 Dose: 100 mls/hr eMAR Start Stop Document 12/26/17 02:33 CNR (Rec: 12/26/17 02:33 CNR [id number]) Intravenous Solution Start Date 12/26/17 Start Time 02:33 End Date 12/26/17 End time 03:33 Total Infusion Time 60 Ciprofloxacin (Cipro 400mg/200ml Dsw) 400 mg in 200 mls @ 133.3 mls/hr IVPB Q12 JIE PRN Reason: Protocol Stop: 12/26/17 11:31 Last Admin: 12/26/17 09:32 Dose: 133.3 mls/hr eMAR Start Stop Document 12/26/17 09:32 ML (Rec: 12/26/17 09:32 ML [facility] [id number] Intravenous Solution Start Date 12/26/17 Start Time 09:32 End Date 12/26/17 End time 10:35 Total Infusion Time 63 Morphine Sulfate (Morphine) 4 mg IVP STAT STA Stop: 12/26/17 00:55 Last Admin: 12/26/17 01:03 Dose: 4 mg MAR Pain Assessment Document 12/26/17 01:03 [facility] (Rec: 12/26/17 01:03 [id number] Pain Reassessment Is this a pain reassessment? No Sleep Is patient sleeping during reassessment? No Presence of Pain Presence of Pain Yes Pain Scale Used Pain Scale Used Numeric Location Upper or Lower Lower Pain Location Body Site Abdomen Description Description Sharp Intensity of Pain at present 8 Acceptable Level of Pain 0 Pain Behavior Rubbing Site Restlessness Aggravating Factors ADL's IVP Administration Document 12/26/17 01:03 [facility] (Rec: 12/26/17 01:03 [id number] Charges for Administration # of IVP Administrations 1 Morphine Sulfate (Morphine) 2 mg IVP Q4H PRN PRN Reason: Pain, moderate (4-7) Last Admin: 12/26/17 06:49 Dose: 2 mg MAR Pain Assessment Document 12/26/17 06:49 SG (Rec: 12/26/17 06:50 SG [id number]) Pain Reassessment Is this a pain reassessment? No Sleep Is patient sleeping during reassessment? No Presence of Pain Presence of Pain Yes IVP Administration Document 12/26/17 06:49 SG (Rec: 12/26/17 06:50 SG [id number]) Charges for Administration # of IVP Administrations 1 - PA / [employer] / Resident Statement / has reviewed & agrees with the documentation as recorded. <Juma Lawrence - Last Filed: 12/26/17 00:43> Disposition/Present on Arrival <Juma Lawrence - Last Filed: 12/26/17 00:43> - Present on Arrival Any Indicators Present on Arrival: No History of DVT/PE: No History of Uncontrolled Diabetes: No Urinary Catheter: No History Surgical Site Infection Following: Orthopedic Procedures - Disposition Have Diagnosis and Disposition been Completed?: Yes Disposition Time: 02:26 Patient Plan: Discharge <Aubrey Medeiros - Last Filed: 12/27/17 12:36> - Disposition Diagnosis: Inguinal hernia, Fever, Partial bowel obstruction Disposition: HOSPITALIZED Patient Problems: Current Active Problems Problem Status Onset Fever Acute Inguinal hernia Acute Partial bowel obstruction Acute Condition: STABLE
[2017-12-25] MEDS ORDERED: Sodium Chloride 0.9% 1,000 ML IV STA (21:51)
[2017-12-25 22:33] LABS: BASO # 0.03 K/mm3 (0.0-2.0); BASO % 0.3 % (0.0-3.0); EOS # 0.2 (0.0-0.7); GRAN # 6.54 (1.4-6.5); GRAN % 72.7 % (50.0-68.0); HEMOGLOBIN 14.8 g/dL (14.0-18.0); LYMPH # 1.4 (1.2-3.4); LYMPH % 15.1 % (22.0-35.0); MEAN CORPUSCULAR HEMOGLOBIN 27.5 pg (25.0-35.0); MEAN CORPUSCULAR HGB CONC 33.9 g/dl (31.0-37.0); MEAN PLATELET VOLUME 9.9 fl (7.0-11.0); MONO # 0.9 (0.1-0.6); MONO % 9.9 % (1.0-6.0); RBC 5.38 10^6/uL (3.5-6.1); RED CELL DISTRIBUTION WIDTH 13.2 % (11.5-14.5)
[2017-12-25 22:34] LABS: VENOUS BLOOD GAS BASE EXCESS -0.4 mmol/L (0.0-2.0); VENOUS BLOOD GAS PO2 122 mm/Hg (30-55); VENOUS BLOOD PH 7.38 (7.32-7.43)
[2017-12-25 22:35] LABS: ALB/GLOB RATIO 1.3 (1.1-1.8); ALBUMIN 4.2 g/dL (3.0-4.8); ALT/SGPT 34 U/L (7-56); AST/SGOT 27 U/L (17-59); BLOOD UREA NITROGEN 11 mg/dL (7-21); GFR AFRICAN-AMERICAN > 60; GFR NON-AFRICAN AMERICAN > 60; LIPASE 42 U/L (23-300)
[2017-12-25 22:39] LABS: INR 1.05 (0.93-1.08); PARTIAL THROMBOPLASTIN TIME 29.5 Seconds (25.1-36.5)
[2017-12-26] MEDS ORDERED: Morphine 4 mg/ml ISec IVP STA (00:54)
[2017-12-26 01:03] LABS: URINE BILIRUBIN NEGATIVE (NEGATIVE); URINE BLOOD NEGATIVE (NEGATIVE); URINE GLUCOSE (UA) NEGATIVE (NEGATIVE); URINE LEUKOCYTE ESTERASE SMALL Leu/uL (NEGATIVE); URINE PROTEIN TRACE mg/dL (<30 mg/dL)
--- NOTE | 2017-12-26 01:25 | CT ---
EXAM: CT Abdomen and Pelvis With Intravenous Contrast CLINICAL HISTORY: 32 years old, male; Pain; Abdominal pain; Flank; Right lower quadrant (rlq); Additional info: Rlq pain R/O appy TECHNIQUE: Axial computed tomography images of the abdomen and pelvis with intravenous contrast. All CT scans at this facility use one or more dose reduction techniques, viz.: automated exposure control; ma/kV adjustment per patient size (including targeted exams where dose is matched to indication; i.e. head); or iterative reconstruction technique. Coronal and sagittal reformatted images were created and reviewed. CONTRAST: 144 mL of OMNI 350 administered intravenously. COMPARISON: No relevant prior studies available. FINDINGS: Lung bases: Unremarkable. No mass. No consolidation. ABDOMEN: Liver: Unremarkable. No mass. Gallbladder and bile ducts: Unremarkable. No calcified stones. No ductal dilation. Pancreas: Unremarkable. No mass. No ductal dilation. Spleen: Unremarkable. No splenomegaly. Adrenals: Unremarkable. No mass. Kidneys and ureters: The right kidney is normal. The left kidney is located in the lower abdomen. No solid mass. No hydronephrosis. Stomach and bowel: There is a right inguinal hernia containing distal small bowel. The small bowel extends to the scrotal sac with fluid in the right scrotum. Moderately thick walled distal small bowel in the pelvis with adjacent mesenteric fat stranding and fluid consistent with edema. Mild diffuse distention of the mid and distal small bowel with the transition point in the right inguinal hernia/scrotum. There are mildly distended fluid-filled loops of small bowel in the scrotum. The small bowel loops exiting the inguinal hernia decompressed. Findings could be secondary to an ileus or partial small bowel obstruction. PELVIS: Appendix: No findings to suggest acute appendicitis. Normal appendix. Bladder: Unremarkable. No mass. Reproductive: Unremarkable as visualized. ABDOMEN and PELVIS: Intraperitoneal space: The amount of free fluid in the abdomen surrounding the liver and spleen. The free fluid extensive paracolic gutters and pelvis. No free air. Bones/joints: No acute fracture. No dislocation. No Vasculature: Unremarkable. No abdominal aortic aneurysm. Lymph nodes: Unremarkable. No enlarged lymph nodes. IMPRESSION: Thick walled distal small bowel with adjacent mesenteric edema. Diagnostic considerations include infectious/inflammatory processes and bowel ischemia. Clinical correlation and followup recommended. Mild diffuse distention of the mid and distal small bowel with a transition point in the right inguinal hernia/scrotum. Possible small bowel ileus or partial distal small bowel obstruction. Mild ascites.
[2017-12-26 01:30] LABS: URINE APPEARANCE SL CLOUDY (CLEAR); URINE COLOR YELLOW (YELLOW)
[2017-12-26 01:34] LABS: URINE BACTERIA FEW (NEG); URINE RBC 0 - 2 /hpf (0-2)
[2017-12-26] MEDS ORDERED: Ciprofloxacin 400mg/200ml D5W 400 MG/200 ML BAG IVPB STA (02:17)
[2017-12-26] MEDS ORDERED: metroNIDAZOLE IV 500 mg/100 ml 500 MG/100 ML BAG IVPB STA (02:19)
--- NOTE | 2017-12-26 02:23 | CP.PCM.CON ---
<Fantasma Escalante - Last Filed: 12/26/17 07:25> History of Present Illness - History of Present Illness History of Present Illness: General Surgery Consult Note for Dr. Hager Reason for consult: Right inguinal hernia 32 M with past medical history of asthma who presents to [facility] [place] for abdominal pain. Patient was seen and examined in ED. He states that for past 2 days he has had pain and testicular swelling. Patient reports that he has had simliar pain for about a month. He states that he previously injured himself working out. He notices a bulge in his right groin. He is able to push it in sometimes. He states that this time it was the worst. He rates pain as moderate. He describes pain as constant, progressive, ad sharp located in r groin radiation to scrotum. He admits to a few episodes of nausea/vomiting while at home. Patient admits to normal BM at home. Admits to fevers. Denies chest pain shortness of rbeaht, palpitations, constipation, incontinence, skin changes. PMH: Asthma Meds: denies ALL: Shellfish PSH: Right ankle fracture repair Social: Tobacco 1-2 packs per week, ETOH Socially, Denies illicit drug use Review of Systems - Review of Systems All systems: reviewed and no additional remarkable complaints except Past Patient History - Infectious Disease Hx of Infectious Diseases: None - Past Social History Smoking Status: Light Smoker < 10 Cigarettes Daily - CARDIAC Hx Cardiac Disorders: No - PULMONARY Hx Respiratory Disorders: Yes Hx Asthma: Yes - NEUROLOGICAL Hx Neurological Disorder: No - HEENT Hx HEENT Problems: No - RENAL Hx Chronic Kidney Disease: No - ENDOCRINE/METABOLIC Hx Endocrine Disorders: No - HEMATOLOGICAL/ONCOLOGICAL Hx Blood Disorders: No - INTEGUMENTARY Hx Dermatological Problems: No - MUSCULOSKELETAL/RHEUMATOLOGICAL Hx Musculoskeletal Disorders: No Hx Falls: No - GASTROINTESTINAL Hx Gastrointestinal Disorders: No - GENITOURINARY/GYNECOLOGICAL Hx Genitourinary Disorders: No - PSYCHIATRIC Hx Psychophysiologic Disorder: No Hx Substance Use: No - SURGICAL HISTORY Other/Comment: Right Ankle ORIF - ANESTHESIA Hx Anesthesia Reactions: No Hx Malignant Hyperthermia: No Meds Allergies/Adverse Reactions: Allergies Allergy/AdvReac Type Severity Reaction Status Date / Time shellfish derived Allergy ANAPHYLAXIS Verified 12/25/17 21:43 - Medications Medications: Current Medications Ciprofloxacin (Cipro 400mg/200ml Dsw) 400 mg in 200 mls @ 133.3 mls/hr IVPB STAT STA PRN Reason: Protocol Stop: 12/26/17 03:47 Metronidazole (Flagyl) 500 mg in 100 mls @ 100 mls/hr IVPB STAT STA PRN Reason: Protocol Stop: 12/26/17 03:18 Physical Exam - Constitutional Appears: No Acute Distress - Head Exam Head Exam: ATRAUMATIC, NORMOCEPHALIC - Eye Exam Eye Exam: EOMI, Normal appearance Pupil Exam: PERRL - ENT Exam ENT Exam: Mucous Membranes Moist - Respiratory Exam Respiratory Exam: NORMAL BREATHING PATTERN - Cardiovascular Exam Cardiovascular Exam: REGULAR RHYTHM - GI/Abdominal Exam GI & Abdominal Exam: Hernia (right inguinal, reducible), Normal Bowel Sounds, Soft, Tenderness (right lower abdomen/right groin) - Exam Exam: Scrotal Swelling - Extremities Exam Extremities exam: Positive for: normal capillary refill, pedal pulses present. Negative for: calf tenderness - Back Exam Back exam: absent: CVA tenderness (L), CVA tenderness (R) - Neurological Exam Neurological exam: Alert, CN II-XII Intact, Oriented x3 - Psychiatric Exam Psychiatric exam: Normal Affect, Normal Mood - Skin Skin Exam: Dry, Intact, Normal Color, Warm Results - Vital Signs Recent Vital Signs: Last Vital Signs Temp 101.4 F H 12/25/17 21:43 Pulse 96 H 12/25/17 21:43 Resp 20 12/25/17 21:43 BP 130/76 12/25/17 21:43 Pulse Ox 96 12/25/17 21:43 - Labs Result Diagrams: 12/25/17 22:20 12/25/17 22:20 Labs: Laboratory Results - last 24 hr 12/25/17 12/25/17 12/25/17 22:20 22:20 22:20 WBC 9.0 RBC 5.38 Hgb 14.8 Hct 43.6 MCV 81.0 MCH 27.5 MCHC 33.9 RDW 13.2 Plt Count 283 MPV 9.9 Gran % 72.7 H Lymph % (Auto) 15.1 L [place] % (Auto) 9.9 H Eos % (Auto) 2.0 Baso % (Auto) 0.3 Gran # 6.54 H Lymph # (Auto) 1.4 [place] # (Auto) 0.9 H Eos # (Auto) 0.2 Baso # (Auto) 0.03 PT 12.0 INR 1.05 APTT 29.5 pO2 122 H VBG pH 7.38 VBG pCO2 42.0 VBG HCO3 24.8 VBG Total CO2 26.1 VBG O2 Sat (Calc) 99.6 H VBG Base Excess -0.4 L VBG Potassium 3.9 Sodium 137.0 Chloride 105.0 Glucose 96 Lactate 1.2 FiO2 21.0 Potassium Carbon Dioxide Anion Gap BUN Creatinine Est GFR ( Amer) Est GFR (Non-Af Amer) Random Glucose Calcium Magnesium Total Bilirubin AST ALT Alkaline Phosphatase Total Protein Albumin Globulin Albumin/Globulin Ratio Lipase Venous Blood Potassium 3.9 Urine Color Urine Appearance Urine pH Ur Specific [place] Urine Protein Urine Glucose (UA) Urine Ketones Urine Blood Urine Nitrate Urine Bilirubin Urine Urobilinogen Ur Leukocyte Esterase Urine RBC Urine WBC Ur Epithelial Cells Urine Bacteria 12/25/17 12/26/17 22:20 00:50 WBC RBC Hgb Hct MCV MCH MCHC RDW Plt Count MPV Gran % Lymph % (Auto) [place] % (Auto) Eos % (Auto) Baso % (Auto) Gran # Lymph # (Auto) [place] # (Auto) Eos # (Auto) Baso # (Auto) PT INR APTT pO2 VBG pH VBG pCO2 VBG HCO3 VBG Total CO2 VBG O2 Sat (Calc) VBG Base Excess VBG Potassium Sodium 144 Chloride 107 Glucose Lactate FiO2 Potassium 4.0 Carbon Dioxide 24 Anion Gap 17 BUN 11 Creatinine 0.9 Est GFR ( Amer) > 60 Est GFR (Non-Af Amer) > 60 Random Glucose 99 Calcium 9.0 Magnesium 1.8 Total Bilirubin 0.4 AST 27 ALT 34 Alkaline Phosphatase 69 Total Protein 7.4 Albumin 4.2 Globulin 3.2 Albumin/Globulin Ratio 1.3 Lipase 42 Venous Blood Potassium Urine Color Yellow Urine Appearance Sl cloudy Urine pH 6.0 Ur Specific [place] 1.020 Urine Protein Trace H Urine Glucose (UA) Negative Urine Ketones 15 H Urine Blood Negative Urine Nitrate Negative Urine Bilirubin Negative Urine Urobilinogen 1.0 H Ur Leukocyte Esterase Small H Urine RBC 0 - 2 Urine WBC 5 - 10 Ur Epithelial Cells 1 - 3 Urine Bacteria Few Assessment & Plan - Assessment and Plan (Free Text) Assessment: 32 M with reducible right inguinal hernia -NPO -IV fluids -IV antibiotics -Monitor bowel function -Serial abd exams -Analgesics/Anti-emetics PRN -Discussed with Dr. Madan Escalante PGY1 <Laura Hager - Last Filed: 12/28/17 12:20> Results - Vital Signs Recent Vital Signs: Last Vital Signs Temp 98.5 F 12/27/17 06:00 Pulse 76 12/27/17 06:00 Resp 20 12/27/17 06:00 BP 113/59 L 12/27/17 06:00 Pulse Ox 97 12/27/17 06:00 - Labs Result Diagrams: 12/27/17 06:30 12/27/17 06:30 Assessment & Plan - Assessment and Plan (Free Text) Plan: I personally saw and examined the patient with resident staff and agree with the above assessment and plan. 32 year old morbidly obese male, active smoker, with reducible right inguinal hernia and current UTI. No need for acute surgical intervention. He does have 2-3cm right inguinal hernia defect, easily reducible. He is high risk for hernia repair in terms of recurrence, infection and perioperative morbidity given the above history. We discussed at length that I would recommend he get this hernia fixed electively, after proper treatment of UTI, weight loss and smoking cessation. He can follow up in [facility] as outpatient. A total of 30 minutes was spent with the patient including exam, counseling, and treatment plan - Date & Time Date: 12/26/17
--- NOTE | 2017-12-26 03:42 | CP.PCM.HP ---
<Arsenio Samaniego - Last Filed: 12/26/17 03:45> History of Present Illness - History of Present Illness History of Present Illness: CC: Abdominal pain HPI: 32 year old male with past medical history of childhood asthma who presents with abdominal pain for past 2 day and testicular swelling. Patient reports that for the past 2 days he has had progressive, sharp, mid epigastric pain that radiates towards his sternum when he coughs. His testicular swelling has been bothering him for longer than a few days. He denies any significant pain or discolaration. Patient denies urinary symptoms, headache, night sweats, chills, shortness of breath, chest pain, constipation. PMH: Asthma PSH: Right ankle fracture repair SOCHX: Tobacco: 1to 2 packs per week, ETOH: Social, ID: Denies ALL: Shellfish MEDS: Denies Present on Admission - Present on Admission Any Indicators Present on Admission: No Review of Systems - Review of Systems All systems: reviewed and no additional remarkable complaints except (as mentioned in HPI) Past Patient History - Infectious Disease Hx of Infectious Diseases: None - Past Social History Smoking Status: Light Smoker < 10 Cigarettes Daily Alcohol: Social Drugs: Denies - CARDIAC Hx Cardiac Disorders: No - PULMONARY Hx Respiratory Disorders: Yes Hx Asthma: Yes - NEUROLOGICAL Hx Neurological Disorder: No - HEENT Hx HEENT Problems: No - RENAL Hx Chronic Kidney Disease: No - ENDOCRINE/METABOLIC Hx Endocrine Disorders: No - HEMATOLOGICAL/ONCOLOGICAL Hx Blood Disorders: No - INTEGUMENTARY Hx Dermatological Problems: No - MUSCULOSKELETAL/RHEUMATOLOGICAL Hx Musculoskeletal Disorders: No Hx Falls: No - GASTROINTESTINAL Hx Gastrointestinal Disorders: No - GENITOURINARY/GYNECOLOGICAL Hx Genitourinary Disorders: No - PSYCHIATRIC Hx Psychophysiologic Disorder: No Hx Substance Use: No - SURGICAL HISTORY Other/Comment: Right Ankle ORIF - ANESTHESIA Hx Anesthesia Reactions: No Hx Malignant Hyperthermia: No Meds Home Medications: Home Medication List Medication Instructions Recorded Confirmed Type Benzonatate [Tessalon Perles] 100 mg PO TID #15 sgl 12/27/17 Rx Ciprofloxacin [Cipro] 500 mg PO BID #10 tab 12/27/17 Rx Allergies/Adverse Reactions: Allergies Allergy/AdvReac Type Severity Reaction Status Date / Time shellfish derived Allergy ANAPHYLAXIS Verified 12/25/17 21:43 Physical Exam - Constitutional Appears: Non-toxic - Head Exam Head Exam: ATRAUMATIC, NORMAL INSPECTION, NORMOCEPHALIC - Eye Exam Eye Exam: EOMI, PERRL - ENT Exam ENT Exam: Mucous Membranes Moist - Neck Exam Neck exam: Positive for: Full Rom - Respiratory Exam Respiratory Exam: Clear to Auscultation Bilateral, NORMAL BREATHING PATTERN. absent: Rhonchi, Wheezes - Cardiovascular Exam Cardiovascular Exam: REGULAR RHYTHM, +S1, +S2 - GI/Abdominal Exam GI & Abdominal Exam: Diminished Bowel Sounds, Guarding, Soft, Tenderness (mid epigastric towards sternum, LUQ). absent: Firm, Rigid - Exam External exam: Swelling (right sided testicular sac) - Extremities Exam Extremities exam: Positive for: normal capillary refill, pedal pulses present. Negative for: calf tenderness, tenderness - Back Exam Back exam: absent: CVA tenderness (L), CVA tenderness (R) - Neurological Exam Neurological exam: Alert, CN II-XII Intact, Normal Gait, Oriented x3 - Psychiatric Exam Psychiatric exam: Normal Affect, Normal Mood - Skin Skin Exam: Dry, Warm Results - Vital Signs Recent Vital Signs: Last Vital Signs Temp 98.9 F 12/26/17 02:37 Pulse 80 12/26/17 02:37 Resp 24 12/26/17 02:37 BP 119/74 12/26/17 02:37 Pulse Ox 98 12/26/17 02:37 - Labs Result Diagrams: 12/25/17 22:20 12/25/17 22:20 Labs: Laboratory Results - last 24 hr 12/25/17 12/25/17 12/25/17 22:20 22:20 22:20 WBC 9.0 RBC 5.38 Hgb 14.8 Hct 43.6 MCV 81.0 MCH 27.5 MCHC 33.9 RDW 13.2 Plt Count 283 MPV 9.9 Gran % 72.7 H Lymph % (Auto) 15.1 L [place] % (Auto) 9.9 H Eos % (Auto) 2.0 Baso % (Auto) 0.3 Gran # 6.54 H Lymph # (Auto) 1.4 [place] # (Auto) 0.9 H Eos # (Auto) 0.2 Baso # (Auto) 0.03 PT 12.0 INR 1.05 APTT 29.5 pO2 122 H VBG pH 7.38 VBG pCO2 42.0 VBG HCO3 24.8 VBG Total CO2 26.1 VBG O2 Sat (Calc) 99.6 H VBG Base Excess -0.4 L VBG Potassium 3.9 Sodium 137.0 Chloride 105.0 Glucose 96 Lactate 1.2 FiO2 21.0 Potassium Carbon Dioxide Anion Gap BUN Creatinine Est GFR ( Amer) Est GFR (Non-Af Amer) Random Glucose Calcium Magnesium Total Bilirubin AST ALT Alkaline Phosphatase Total Protein Albumin Globulin Albumin/Globulin Ratio Lipase Venous Blood Potassium 3.9 Urine Color Urine Appearance Urine pH Ur Specific [place] Urine Protein Urine Glucose (UA) Urine Ketones Urine Blood Urine Nitrate Urine Bilirubin Urine Urobilinogen Ur Leukocyte Esterase Urine RBC Urine WBC Ur Epithelial Cells Urine Bacteria BBK History Checked 12/25/17 12/26/17 12/26/17 22:20 00:50 02:50 WBC RBC Hgb Hct MCV MCH MCHC RDW Plt Count MPV Gran % Lymph % (Auto) [place] % (Auto) Eos % (Auto) Baso % (Auto) Gran # Lymph # (Auto) [place] # (Auto) Eos # (Auto) Baso # (Auto) PT INR APTT pO2 VBG pH VBG pCO2 VBG HCO3 VBG Total CO2 VBG O2 Sat (Calc) VBG Base Excess VBG Potassium Sodium 144 Chloride 107 Glucose Lactate FiO2 Potassium 4.0 Carbon Dioxide 24 Anion Gap 17 BUN 11 Creatinine 0.9 Est GFR ( Amer) > 60 Est GFR (Non-Af Amer) > 60 Random Glucose 99 Calcium 9.0 Magnesium 1.8 Total Bilirubin 0.4 AST 27 ALT 34 Alkaline Phosphatase 69 Total Protein 7.4 Albumin 4.2 Globulin 3.2 Albumin/Globulin Ratio 1.3 Lipase 42 Venous Blood Potassium Urine Color Yellow Urine Appearance Sl cloudy Urine pH 6.0 Ur Specific [place] 1.020 Urine Protein Trace H Urine Glucose (UA) Negative Urine Ketones 15 H Urine Blood Negative Urine Nitrate Negative Urine Bilirubin Negative Urine Urobilinogen 1.0 H Ur Leukocyte Esterase Small H Urine RBC 0 - 2 Urine WBC 5 - 10 Ur Epithelial Cells 1 - 3 Urine Bacteria Few BBK History Checked No verified bt Assessment & Plan - Assessment and Plan (Free Text) Assessment: 32 year old male with past medical history of childhood asthma who presents with abdominal pain for past 2 day and testicular swelling. Abdominal pelvis CT showing thick walled distal small bowel with adjacent mesenteric edema suspicious for inflammatory process vs bowel ischemia. General surgery is consulted and following Plan: Abdominal Discomfort 2/2 right inguinal hernia and ?SBO Abd/Pelvis CT with contrast: - Thick walled distal small bowel with adjacent mesenteric edema. - Diagnostic considerations include infectious/inflammatory processes and bowel ischemia. - Mild diffuse distention of the mid and distal small bowel with a transition point in the right inguinal hernia/scrotum. Possible small bowel ileus or partial distal small bowel obstruction. - Mild ascites. - General Surgery consult, f/u recs - NPO UTI - uncomplicated - Leuk esterase positive on UTI - No acute clinical symptoms - ABx Febrile - 101F in ED - Blood and urine culture - No wbc, UA showing positive leuk est DVT ppx: SCD GI ppx: Protonix case and plan discussed with attending - Date & Time Date: 12/26/17 Time: 03:38 <Qamar Ng - Last Filed: 12/28/17 00:01> Results - Vital Signs Recent Vital Signs: Last Vital Signs Temp 98.5 F 12/27/17 06:00 Pulse 76 12/27/17 06:00 Resp 20 12/27/17 06:00 BP 113/59 L 12/27/17 06:00 Pulse Ox 97 12/27/17 06:00 - Labs Result Diagrams: 12/27/17 06:30 12/27/17 06:30 Labs: Laboratory Results - last 24 hr 12/27/17 12/27/17 12/27/17 06:30 06:30 06:30 WBC 6.9 D RBC 4.69 Hgb 12.6 L D Hct 37.9 L MCV 80.8 MCH 26.9 MCHC 33.2 RDW 13.2 Plt Count 251 MPV 9.7 Gran % 51.6 Lymph % (Auto) 30.9 [place] % (Auto) 12.3 H Eos % (Auto) 4.8 Baso % (Auto) 0.4 Gran # 3.53 Lymph # (Auto) 2.1 [place] # (Auto) 0.8 H Eos # (Auto) 0.3 Baso # (Auto) 0.03 PT 13.3 H INR 1.15 H APTT 27.1 Sodium 142 Potassium 3.8 Chloride 107 Carbon Dioxide 24 Anion Gap 15 BUN 9 Creatinine 1.0 Est GFR ( Amer) > 60 Est GFR (Non-Af Amer) > 60 Random Glucose 100 Calcium 8.5 Total Bilirubin 0.4 AST 28 ALT 31 Alkaline Phosphatase 59 Total Protein 6.5 Albumin 3.7 Globulin 2.8 Albumin/Globulin Ratio 1.4
[2017-12-26 04:34] VITALS: BMI 43.2
[2017-12-26] MEDS: metroNIDAZOLE IV 500 mg/100 ml 500 MG/100 ML BAG IVPB SCH ×3 (06:30→21:47)
[2017-12-26] MEDS: Sodium Chloride 0.9% 1,000 ML IV SCH ×2 (06:31→21:49)
[2017-12-26] MEDS ORDERED: Morphine 2 mg/ml ISec IVP PRN (06:36)
[2017-12-26 07:26] LABS: INR 1.06 (0.93-1.08); PROTHROMBIN TIME 12.2 SECONDS (9.4-12.5)
--- NOTE | 2017-12-26 07:42 | RAD ---
HISTORY: cough COMPARISON: 12/02/2016 FINDINGS: LUNGS: No active pulmonary disease. PLEURA: No significant pleural effusion identified, no pneumothorax apparent. CARDIOVASCULAR: Normal. OSSEOUS STRUCTURES: No significant abnormalities. VISUALIZED UPPER ABDOMEN: Normal. OTHER FINDINGS: None. IMPRESSION: No active disease.
--- NOTE | 2017-12-26 08:53 | CP.PCM.PN ---
Subjective - Date & Time of Evaluation Date of Evaluation: 12/26/17 Time of Evaluation: 07:30 - Subjective Subjective: Surgery progress note for Dr. Hager Patient seen and examined at bedside. Per nursing staff, no acute events overnight. Patient's abdominal pain has improved, and he has no pain at rest. He continues to report mild abdominal pain with cough. He denies nausea, vomiting, fever, chills, diarrhea, constipation. Admits to passing flatus. Objective - Vital Signs/Intake and Output Vital Signs (last 24 hours): Temp Pulse Resp BP Pulse Ox 98.2 F 89 16 127/82 99 12/26/17 08:43 12/26/17 08:43 12/26/17 08:43 12/26/17 08:43 12/26/17 08:43 - Medications Medications: Current Medications Sodium Chloride (Sodium Chloride 0.9%) 1,000 mls @ 120 mls/hr IV .[id number] JIE Last Admin: 12/26/17 06:31 Dose: 120 mls/hr Ciprofloxacin (Cipro 400mg/200ml Dsw) 400 mg in 200 mls @ 133.3 mls/hr IVPB Q12 JIE PRN Reason: Protocol Stop: 12/26/17 11:31 Metronidazole (Flagyl) 500 mg in 100 mls @ 100 mls/hr IVPB Q8 JIE PRN Reason: Protocol Last Admin: 12/26/17 06:30 Dose: 100 mls/hr Morphine Sulfate (Morphine) 2 mg IVP Q4H PRN PRN Reason: Pain, moderate (4-7) Last Admin: 12/26/17 06:49 Dose: 2 mg Ondansetron HCl (Zofran Inj) 4 mg IVP Q4H PRN PRN Reason: Nausea/Vomiting Pantoprazole Sodium (Protonix Inj) 40 mg IVP DAILY JIE - Labs Labs: PT 12.2 SECONDS (9.4-12.5) 12/26/17 06:30 INR 1.06 (0.93-1.08) 12/26/17 06:30 APTT 29.5 Seconds (25.1-36.5) 12/25/17 22:20 - Constitutional Appears: Non-toxic, No Acute Distress, Other (Morbidly obese) - Head Exam Head Exam: NORMAL INSPECTION - Eye Exam Eye Exam: Normal appearance - ENT Exam ENT Exam: Mucous Membranes Moist - Respiratory Exam Respiratory Exam: NORMAL BREATHING PATTERN - GI/Abdominal Exam GI & Abdominal Exam: Soft, Tenderness (mild, RLQ) Additional comments: Hernia in right groin, soft, reducible. Mild right scrotal swelling - Neurological Exam Neurological Exam: Alert, Awake - Skin Skin Exam: Dry, Intact, Normal Color Assessment and Plan - Assessment and Plan (Free Text) Assessment: 32 M with reducible right inguinal hernia Plan: -Abdominal pain improving, passing flatus; Advance diet as tolerated -Will require outpatient follow up for elective herniorrhaphy -Continue IV antibiotics as per primary team -Continue to monitor closely -Analgesics/Anti-emetics PRN -Further recs as per Dr. Madan Nichole PGY1
[2017-12-26] MEDS ORDERED: Ciprofloxacin 400mg/200ml D5W 400 MG/200 ML BAG IVPB SCH (10:00)
[2017-12-26] MEDS ORDERED: Enoxaparin 40 mg Syringe SC SCH (10:00)
[2017-12-26] MEDS: Morphine 2 mg/ml ISec IVP PRN (10:34)
[2017-12-26] MEDS: cefTRIAXone 1 gm 1 GM/100 ML BAG IVPB SCH (13:04)
[2017-12-26] MEDS: Albuterol-Ipratrop 3 mg / 0.5 (3 ml) UD IH PRN ×2 (13:32→20:34)
[2017-12-26 18:18] VITALS: RESP 20
[2017-12-27] MEDS: metroNIDAZOLE IV 500 mg/100 ml 500 MG/100 ML BAG IVPB SCH (05:43)
[2017-12-27] MEDS: Albuterol-Ipratrop 3 mg / 0.5 (3 ml) UD IH PRN (06:03)
[2017-12-27 07:12] LABS: BASO # 0.03 K/mm3 (0.0-2.0); BASO % 0.4 % (0.0-3.0); EOS # 0.3 (0.0-0.7); EOS % 4.8 % (1.5-5.0); GRAN # 3.53 (1.4-6.5); GRAN % 51.6 % (50.0-68.0); LYMPH # 2.1 (1.2-3.4); LYMPH % 30.9 % (22.0-35.0); MEAN CELL VOLUME 80.8 fl (80.0-105.0); MEAN CORPUSCULAR HEMOGLOBIN 26.9 pg (25.0-35.0); MEAN CORPUSCULAR HGB CONC 33.2 g/dl (31.0-37.0); MEAN PLATELET VOLUME 9.7 fl (7.0-11.0); MONO # 0.8 (0.1-0.6); MONO % 12.3 % (1.0-6.0); RBC 4.69 10^6/uL (3.5-6.1); RED CELL DISTRIBUTION WIDTH 13.2 % (11.5-14.5); WHITE BLOOD COUNT 6.9 10^3/ul (4.5-11.0)
[2017-12-27 07:23] LABS: INR 1.15 (0.93-1.08); PARTIAL THROMBOPLASTIN TIME 27.1 Seconds (25.1-36.5); PROTHROMBIN TIME 13.3 SECONDS (9.4-12.5)
[2017-12-27 07:24] LABS: HEMOGLOBIN 12.6 g/dL (14.0-18.0)
[2017-12-27 07:31] LABS: ALT/SGPT 31 U/L (7-56)
[2017-12-27 07:42] LABS: ALB/GLOB RATIO 1.4 (1.1-1.8); ALBUMIN 3.7 g/dL (3.0-4.8); AST/SGOT 28 U/L (17-59); BLOOD UREA NITROGEN 9 mg/dL (7-21); CALCIUM 8.5 mg/dL (8.4-10.5); GFR AFRICAN-AMERICAN > 60; GFR NON-AFRICAN AMERICAN > 60
[2017-12-27] MEDS: cefTRIAXone 1 gm 1 GM/100 ML BAG IVPB SCH (09:45)
[2017-12-27] MEDS: Morphine 2 mg/ml ISec IVP PRN (09:45)
[2017-12-27 14:11] VITALS: BP 113/59; PULSE 76; TEMP 98.5; O2SAT 97
--- NOTE | 2017-12-27 14:20 | CP.PCM.DIS ---
<Pramod Huffman - Last Filed: 12/27/17 18:11> Provider - Provider Date of Admission: 12/26/17 02:26 Attending physician: Yoselin Bledsoe MD Consults: Surgery - Laura Hager Time Spent in preparation of Discharge (in minutes): 35 Hospital Course - Lab Results Lab Results: Most Recent Lab Values WBC 6.9 10^3/ul (4.5-11.0) D 12/27/17 06:30 RBC 4.69 10^6/uL (3.5-6.1) 12/27/17 06:30 Hgb 12.6 g/dL (14.0-18.0) L D 12/27/17 06:30 Hct 37.9 % (42.0-52.0) L 12/27/17 06:30 MCV 80.8 fl (80.0-105.0) 12/27/17 06:30 MCH 26.9 pg (25.0-35.0) 12/27/17 06:30 MCHC 33.2 g/dl (31.0-37.0) 12/27/17 06:30 RDW 13.2 % (11.5-14.5) 12/27/17 06:30 Plt Count 251 10^3/uL (120.0-450.0) 12/27/17 06:30 MPV 9.7 fl (7.0-11.0) 12/27/17 06:30 Gran % 51.6 % (50.0-68.0) 12/27/17 06:30 Lymph % (Auto) 30.9 % (22.0-35.0) 12/27/17 06:30 [place] % (Auto) 12.3 % (1.0-6.0) H 12/27/17 06:30 Eos % (Auto) 4.8 % (1.5-5.0) 12/27/17 06:30 Baso % (Auto) 0.4 % (0.0-3.0) 12/27/17 06:30 Gran # 3.53 (1.4-6.5) 12/27/17 06:30 Lymph # (Auto) 2.1 (1.2-3.4) 12/27/17 06:30 [place] # (Auto) 0.8 (0.1-0.6) H 12/27/17 06:30 Eos # (Auto) 0.3 (0.0-0.7) 12/27/17 06:30 Baso # (Auto) 0.03 K/mm3 (0.0-2.0) 12/27/17 06:30 PT 13.3 SECONDS (9.4-12.5) H 12/27/17 06:30 INR 1.15 (0.93-1.08) H 12/27/17 06:30 APTT 27.1 Seconds (25.1-36.5) 12/27/17 06:30 pO2 122 mm/Hg (30-55) H 12/25/17 22:20 VBG pH 7.38 (7.32-7.43) 12/25/17 22:20 VBG pCO2 42.0 (40-60) 12/25/17 22:20 VBG HCO3 24.8 mmol/l (21-28) 12/25/17 22:20 VBG Total CO2 26.1 mmol.L (22-28) 12/25/17 22:20 VBG O2 Sat (Calc) 99.6 % (40-65) H 12/25/17 22:20 VBG Base Excess -0.4 mmol/L (0.0-2.0) L 12/25/17 22:20 VBG Potassium 3.9 mmol/L (3.6-5.2) 12/25/17 22:20 Sodium 137.0 mmol/L (132-148) 12/25/17 22:20 Chloride 105.0 mmol/L (98-107) 12/25/17 22:20 Glucose 96 mg/dl (75-110) 12/25/17 22:20 Lactate 1.2 mmol/L (0.7-2.1) 12/25/17 22:20 FiO2 21.0 % 12/25/17 22:20 Sodium 142 mmol/L (132-148) 12/27/17 06:30 Potassium 3.8 mmol/L (3.6-5.0) 12/27/17 06:30 Chloride 107 mmol/L (98-107) 12/27/17 06:30 Carbon Dioxide 24 mmol/L (21-33) 12/27/17 06:30 Anion Gap 15 (10-20) 12/27/17 06:30 BUN 9 mg/dL (7-21) 12/27/17 06:30 Creatinine 1.0 mg/dl (0.8-1.5) 12/27/17 06:30 Est GFR ( Amer) > 60 12/27/17 06:30 Est GFR (Non-Af Amer) > 60 12/27/17 06:30 Random Glucose 100 mg/dL (70-110) 12/27/17 06:30 Calcium 8.5 mg/dL (8.4-10.5) 12/27/17 06:30 Magnesium 1.8 mg/dL (1.7-2.2) 12/25/17 22:20 Total Bilirubin 0.4 mg/dL (0.2-1.3) 12/27/17 06:30 AST 28 U/L (17-59) 12/27/17 06:30 ALT 31 U/L (7-56) 12/27/17 06:30 Alkaline Phosphatase 59 U/L (38-126) 12/27/17 06:30 Total Protein 6.5 g/dL (5.8-8.3) 12/27/17 06:30 Albumin 3.7 g/dL (3.0-4.8) 12/27/17 06:30 Globulin 2.8 gm/dL 12/27/17 06:30 Albumin/Globulin Ratio 1.4 (1.1-1.8) 12/27/17 06:30 Lipase 42 U/L (23-300) 12/25/17 22:20 Venous Blood Potassium 3.9 mmol/L (3.6-5.2) 12/25/17 22:20 Urine Color Yellow (YELLOW) 12/26/17 00:50 Urine Appearance Sl cloudy (CLEAR) 12/26/17 00:50 Urine pH 6.0 (4.7-8.0) 12/26/17 00:50 Ur Specific [place] 1.020 (1.005-1.035) 12/26/17 00:50 Urine Protein Trace mg/dL (<30 mg/dL) H 12/26/17 00:50 Urine Glucose (UA) Negative mg/dL (NEGATIVE) 12/26/17 00:50 Urine Ketones 15 mg/dL (NEGATIVE) H 12/26/17 00:50 Urine Blood Negative (NEGATIVE) 12/26/17 00:50 Urine Nitrate Negative (NEGATIVE) 12/26/17 00:50 Urine Bilirubin Negative (NEGATIVE) 12/26/17 00:50 Urine Urobilinogen 1.0 E.U./dL (<1 E.U./dL) H 12/26/17 00:50 Ur Leukocyte Esterase Small [place]/uL (NEGATIVE) H 12/26/17 00:50 Urine RBC 0 - 2 /hpf (0-2) 12/26/17 00:50 Urine WBC 5 - 10 /hpf (0-6) 12/26/17 00:50 Ur Epithelial Cells 1 - 3 /hpf (0-5) 12/26/17 00:50 Urine Bacteria Few (NEG) 12/26/17 00:50 Blood Type AB POSITIVE 12/26/17 02:50 Blood Type Confirm AB POSITIVE 12/26/17 03:17 Antibody Screen Negative 12/26/17 02:50 BBK History Checked No verified bt 12/26/17 02:50 - Hospital Course Hospital Course: As per admission documentation 32 year old male with past medical history of childhood asthma who presents with abdominal pain for past 2 day and testicular swelling. Patient reports that for the past 2 days he has had progressive, sharp, mid epigastric pain that radiates towards his sternum when he coughs. His testicular swelling has been bothering him for longer than a few days. He denies any significant pain or discolaration. Patient denies urinary symptoms, headache, night sweats, chills, shortness of breath, chest pain, constipation. Hospital Course Patient was admitted for abdominal pain 2/2 right inguinal hernia and partial SBO. Abd/Pelvis CT with contrast: Thick walled distal small bowel with adjacent mesenteric edema. Diagnostic considerations include infectious/inflammatory processes and bowel ischemia. Mild diffuse distention of the mid and distal small bowel with a transition point in the right inguinal hernia/scrotum. Possible small bowel ileus or partial distal small bowel obstruction. Mild ascites. General Surgery was consulted, Dr. Laura Hager. Hernia was easily reduced at bedside. No emergent treatment needed. Follow up as outpatient for elective surgery. Patient had a fever and was found to have a UTI. He was started on cipro and flagyl in the ED to cover if this was coming from or GI. Patient was stable throughout the rest of his hospital stay. He was made NPO but then fed on date of discharge. Patient tolerate a regular diet and wanted to be discharged home. He was discharge home with the follow instructions. Discharge Instructions - Patient is to be discharged home. - Follow up with primary care physician within one week. - Follow with surgery, Dr. Laura Hager, as an outpatient for elective herniorrhaphy (repair of hernia). - Take medications as directed. - Take Cipro 500mg by mouth twice a day for 5 days. Make sure to complete entire course of antibiotics. - If you experience any new or worsening symptoms, please go to the nearest emergency facility. This is just a brief summary of the patient's hospital course. For full detail, please see EMR. Discharge Exam - Head Exam Head Exam: ATRAUMATIC, NORMAL INSPECTION - Eye Exam Eye Exam: EOMI, Normal appearance, PERRL Pupil Exam: NORMAL ACCOMODATION - ENT Exam ENT Exam: Mucous Membranes Moist - Respiratory Exam Respiratory Exam: Clear to PA & Lateral, NORMAL BREATHING PATTERN, UNREMARKABLE. absent: Accessory Muscle Use, Rales, Rhonchi, Wheezes, Respiratory Distress - Cardiovascular Exam Cardiovascular Exam: REGULAR RHYTHM, +S1, +S2 - GI/Abdominal Exam GI & Abdominal Exam: Hernia (right sided inguinal hernia, easily reducible, no pain), Normal Bowel Sounds, Soft, Unremarkable. absent: Distended, Firm, Guarding, Tenderness - Exam Exam: absent: NORMAL INSPECTION (right sided inguinal hernia, easily reducible, no pain), Scrotal Swelling, Testicular Tenderness (no tenderness b/l) External exam: absent: Ecchymosis, Erythema - Extremities Exam Extremities exam: normal inspection - Back Exam Back exam: absent: CVA tenderness (L), CVA tenderness (R) - Neurological Exam Neurological exam: Alert, CN II-XII Intact, Normal Gait, Oriented x3 - Psychiatric Exam Psychiatric exam: Normal Affect, Normal Mood - Skin Skin Exam: Dry, Normal Color, Warm Discharge Plan - Discharge Medications Prescriptions: Benzonatate [Tessalon Perles] 100 mg PO TID #15 sgl Ciprofloxacin [Cipro] 500 mg PO BID #10 tab - Follow Up Plan Condition: STABLE Disposition: HOME/ ROUTINE Instructions: Small Bowel Obstruction, Small Bowel Obstruction (DC), Open Herniorrhaphy (DC), Laparoscopic Herniorrhaphy (DC), Inguinal Hernia (DC) Additional Instructions: - Patient is to be discharged home. - Follow up with primary care physician within one week. - Follow with surgery, Dr. Laura Hager, as an outpatient for elective herniorrhaphy (repair of hernia). - Take medications as directed. - Take Cipro 500mg by mouth twice a day for 5 days. Make sure to complete entire course of antibiotics. - If you experience any new or worsening symptoms, please go to the nearest emergency facility. Referrals: Laura Hager MD [Staff Provider] - <Yoselin Bledsoe - Last Filed: 12/27/17 18:47> Provider - Provider Date of Admission: 12/26/17 02:26 Attending physician: Yoselin Bledsoe MD Hospital Course - Lab Results Lab Results: Micro Results 12/27/17 01:00 Sputum Gram Stain - Preliminary Most Recent Lab Values WBC 6.9 10^3/ul (4.5-11.0) D 12/27/17 06:30 RBC 4.69 10^6/uL (3.5-6.1) 12/27/17 06:30 Hgb 12.6 g/dL (14.0-18.0) L D 12/27/17 06:30 Hct 37.9 % (42.0-52.0) L 12/27/17 06:30 MCV 80.8 fl (80.0-105.0) 12/27/17 06:30 MCH 26.9 pg (25.0-35.0) 12/27/17 06:30 MCHC 33.2 g/dl (31.0-37.0) 12/27/17 06:30 RDW 13.2 % (11.5-14.5) 12/27/17 06:30 Plt Count 251 10^3/uL (120.0-450.0) 12/27/17 06:30 MPV 9.7 fl (7.0-11.0) 12/27/17 06:30 Gran % 51.6 % (50.0-68.0) 12/27/17 06:30 Lymph % (Auto) 30.9 % (22.0-35.0) 12/27/17 06:30 [place] % (Auto) 12.3 % (1.0-6.0) H 12/27/17 06:30 Eos % (Auto) 4.8 % (1.5-5.0) 12/27/17 06:30 Baso % (Auto) 0.4 % (0.0-3.0) 12/27/17 06:30 Gran # 3.53 (1.4-6.5) 12/27/17 06:30 Lymph # (Auto) 2.1 (1.2-3.4) 12/27/17 06:30 [place] # (Auto) 0.8 (0.1-0.6) H 12/27/17 06:30 Eos # (Auto) 0.3 (0.0-0.7) 12/27/17 06:30 Baso # (Auto) 0.03 K/mm3 (0.0-2.0) 12/27/17 06:30 PT 13.3 SECONDS (9.4-12.5) H 12/27/17 06:30 INR 1.15 (0.93-1.08) H 12/27/17 06:30 APTT 27.1 Seconds (25.1-36.5) 12/27/17 06:30 pO2 122 mm/Hg (30-55) H 12/25/17 22:20 VBG pH 7.38 (7.32-7.43) 12/25/17 22:20 VBG pCO2 42.0 (40-60) 12/25/17 22:20 VBG HCO3 24.8 mmol/l (21-28) 12/25/17 22:20 VBG Total CO2 26.1 mmol.L (22-28) 12/25/17 22:20 VBG O2 Sat (Calc) 99.6 % (40-65) H 12/25/17 22:20 VBG Base Excess -0.4 mmol/L (0.0-2.0) L 12/25/17 22:20 VBG Potassium 3.9 mmol/L (3.6-5.2) 12/25/17 22:20 Sodium 137.0 mmol/L (132-148) 12/25/17 22:20 Chloride 105.0 mmol/L (98-107) 12/25/17 22:20 Glucose 96 mg/dl (75-110) 05/16/18 22:20 Lactate 1.2 mmol/L (0.7-2.1) 12/25/17 22:20 FiO2 21.0 % 12/25/17 22:20 Sodium 142 mmol/L (132-148) 12/27/17 06:30 Potassium 3.8 mmol/L (3.6-5.0) 12/27/17 06:30 Chloride 107 mmol/L (98-107) 12/27/17 06:30 Carbon Dioxide 24 mmol/L (21-33) 12/27/17 06:30 Anion Gap 15 (10-20) 12/27/17 06:30 BUN 9 mg/dL (7-21) 12/27/17 06:30 Creatinine 1.0 mg/dl (0.8-1.5) 12/27/17 06:30 Est GFR ( Amer) > 60 12/27/17 06:30 Est GFR (Non-Af Amer) > 60 12/27/17 06:30 Random Glucose 100 mg/dL (70-110) 12/27/17 06:30 Calcium 8.5 mg/dL (8.4-10.5) 12/27/17 06:30 Magnesium 1.8 mg/dL (1.7-2.2) 12/25/17 22:20 Total Bilirubin 0.4 mg/dL (0.2-1.3) 12/27/17 06:30 AST 28 U/L (17-59) 12/27/17 06:30 ALT 31 U/L (7-56) 12/27/17 06:30 Alkaline Phosphatase 59 U/L (38-126) 12/27/17 06:30 Total Protein 6.5 g/dL (5.8-8.3) 12/27/17 06:30 Albumin 3.7 g/dL (3.0-4.8) 12/27/17 06:30 Globulin 2.8 gm/dL 12/27/17 06:30 Albumin/Globulin Ratio 1.4 (1.1-1.8) 12/27/17 06:30 Lipase 42 U/L (23-300) 12/25/17 22:20 Venous Blood Potassium 3.9 mmol/L (3.6-5.2) 12/25/17 22:20 Urine Color Yellow (YELLOW) 12/26/17 00:50 Urine Appearance Sl cloudy (CLEAR) 12/26/17 00:50 Urine pH 6.0 (4.7-8.0) 12/26/17 00:50 Ur Specific [place] 1.020 (1.005-1.035) 12/26/17 00:50 Urine Protein Trace mg/dL (<30 mg/dL) H 12/26/17 00:50 Urine Glucose (UA) Negative mg/dL (NEGATIVE) 12/26/17 00:50 Urine Ketones 15 mg/dL (NEGATIVE) H 12/26/17 00:50 Urine Blood Negative (NEGATIVE) 12/26/17 00:50 Urine Nitrate Negative (NEGATIVE) 12/26/17 00:50 Urine Bilirubin Negative (NEGATIVE) 12/26/17 00:50 Urine Urobilinogen 1.0 E.U./dL (<1 E.U./dL) H 12/26/17 00:50 Ur Leukocyte Esterase [place]/uL (NEGATIVE) H 12/26/17 00:50 Urine RBC 0 - 2 /hpf (0-2) 12/26/17 00:50 Urine WBC 5 - 10 /hpf (0-6) 12/26/17 00:50 Ur Epithelial Cells 1 - 3 /hpf (0-5) 12/26/17 00:50 Urine Bacteria Few (NEG) 12/26/17 00:50 Blood Type AB POSITIVE 12/26/17 02:50 Blood Type Confirm AB POSITIVE 12/26/17 03:17 Antibody Screen Negative 12/26/17 02:50 BBK History Checked No verified bt 12/26/17 02:50 Attending/Attestation - Attestation I have personally seen and examined this patient.: Yes I have fully participated in the care of the patient.: Yes I have reviewed all pertinent clinical information, including history, physical exam and plan: Yes Notes (Text): 12/27/17 18:46 Attending note; Patient seen and examined with resident. Patient is a 32-year-old male admitted with right groin pain. Found to have a reducible right inguinal hernia. Surgery evaluation appreciated. Patient will follow up with surgery as outpatient for herniorrhaphy. Currently tolerating diet. Denies any nausea, vomiting. Treated with Cipro and Flagyl. Patient will be discharged home with ciprofloxacin. Advised to follow-up with PMD of choice. Patient will follow-up with surgery for herniorrhaphy. 12/27/17 18:47
== END 2017-12-27 14:46 | disposition home or self-care (01) | DRG 188 ==
LOC: ED 21:31 → ERH 12-26 02:26 → 3RSO 12-26 03:57
PROVIDERS: ADMIT Internal Medicine; ATTEND Internal Medicine
DX: K40.90 Unilateral inguinal hernia, without obstruction or gangrene, not specified as recurrent (principal); K56.690 Other partial intestinal obstruction; R18.8 Other ascites; N39.0 Urinary tract infection, site not specified; J45.909 Unspecified asthma, uncomplicated; E66.01 Morbid (severe) obesity due to excess calories; Z68.41 Body mass index [BMI] 40.0-44.9, adult; Z87.891 Personal history of nicotine dependence